=== PATIENT | female | born 1980 | race African-American/Black ===

== ENCOUNTER 2016-10-07 01:39 | Emergency (ER) | payer MEDICAID, MEDICARE ==
[~2016-10-07] VITALS: Ht 170.2 cm; Wt 68.0 kg
[~2016-10-07 01:39] MED LIST: DIPH25CA83 PO; HYDR-519 PO; METO25TA6 PO; ONDA4TAB5 PO; PROT20 PO
[2016-10-07] MEDS ORDERED: SODIUM CHLORIDE 0.9% 1,000 ML IV ONE (03:01)
[2016-10-07] MEDS ORDERED: MORPHINE SULFATE 4 MG/ML CPJ (NOT FOR IM USE) IV STA (03:01)
[2016-10-07] MEDS ORDERED: ONDANSETRON HCL 4MG/2ML VIAL IV STA (03:01)
[2016-10-07] MEDS ORDERED: DIPHENHYDRAMINE 50MG/ML VIAL IV ONE (03:15)
[2016-10-07 03:32] LABS: BASOPHILS % 0.5 % (0.0-2.0); EOSINOPHILS % 0.2 % (0.0-5.0); HCG SCREEN NEGATIVE; HEMATOCRIT. 39.6 % (36.0-48.0); HEMOGLOBIN. 13.1 g/dL (12.0-16.0); LYMPHOCYTES % 19.2 % (20.0-50.0); MEAN CORPUSCULAR HEMOGLOBIN 32.4 pg (28.0-32.0); MEAN CORPUSCULAR HGB CONC 33.1 g/dL (31.0-37.0); MEAN CORPUSCULAR VOLUME 97.9 fL (81.0-99.0); MEAN PLATELET VOLUME 8.2 fl (7.4-10.4); MONOCYTES % 4.4 % (2.0-8.0); NEUTROPHILS % 75.7 % (40.0-76.0); PLATELET 304 x1000/uL (130-400); RED BLOOD CELL COUNT 4.05 mill/uL (4.2-5.4); RED CELL DISTRIBUTION WIDTH 12.9 % (11.6-14.6); WHITE BLOOD COUNT 6.1 x1000/uL (4.5-11.0)
[2016-10-07 03:34] LABS: ALANINE AMINOTRANSFERASE 16 IU/L (13-61); ALBUMIN 4.1 g/dL (3.4-5.0); ANION GAP 12; CALCIUM 9.5 mg/dL (8.5-10.1); CARBON DIOXIDE 25 mEq/L (21-32); CHLORIDE 111 mEq/L (98-107); INDEX HEMOLYSI 3 (1-3); INDEX ICTERIC 1 (1-4); INDEX LIPEMIC 1 (1-3); LIPASE 333 IU/L (73-393); UREA NITROGEN BLOOD 12 mg/dL (7-21); eGFR > 60 mL/min (>60)
[2016-10-07 04:46] LABS: CLARITY URINE CLEAR (CLEAR); COLOR URINE YELLOW (YELLOW); GLUCOSE URINE NEGATIVE (NEGATIVE); KETONES URINE TRACE (NEGATIVE); LEUKOCYTE ESTERASE URINE NEGATIVE (NEGATIVE); NITRITE URINE NEGATIVE (NEGATIVE); OCCULT BLOOD URINE 2+ (NEGATIVE); PROTEIN URINE NEGATIVE (NEGATIVE); SPECIFIC GRAVITY URINE 1.032 (1.005-1.030)
[2016-10-07] MEDS ORDERED: MORPHINE SULFATE 4 MG/ML CPJ (NOT FOR IM USE) IV ONE (05:00)
[2016-10-07 05:52] LABS: SQUAMOUS EPITHELIAL CELL URINE 1+ /lpf (RARE/1+)
[2016-10-07 05:54] VITALS: BP 95/69
[2016-10-07 05:59] LABS: BACTERIA URINE TRACE; TRICHOMONAS URINE 1+
== END 2016-10-07 07:12 | disposition home or self-care (01) ==
LOC: ER 01:40
DX: N83.201 Unspecified ovarian cyst, right side (principal); N83.202 Unspecified ovarian cyst, left side; N80.9 Endometriosis, unspecified; Z87.19 Personal history of other diseases of the digestive system
CPT/HCPCS: 36415; 76830; 76856; 80053; 81001; 83690; 84703; 85025; 96361; 96374; 96375; 96376; 99285; J1200; J2270; J2405; J7030; Z7610

== ENCOUNTER 2016-11-16 07:28 | Emergency (ER) | payer MEDICAID, MEDICARE ==
[~2016-11-16] VITALS: Ht 170.2 cm; Wt 63.5 kg
[2016-11-16 07:47] VITALS: BP_DIAS 80
[2016-11-16] MEDS ORDERED: KETOROLAC 30MG/ML VIAL IV STA (07:47)
[2016-11-16] MEDS ORDERED: SODIUM CHLORIDE 0.9% 1,000 ML IV ONE (07:47)
[2016-11-16] MEDS ORDERED: ONDANSETRON HCL 4MG/2ML VIAL IV STA (07:47)
[2016-11-16] MEDS ORDERED: MORPHINE SULFATE 4 MG/ML CPJ (NOT FOR IM USE) IV STA (07:47)
[2016-11-16 08:46] VITALS: BP_SYST 60
[2016-11-16] MEDS ORDERED: METOCLOPRAMIDE HCL 10MG/2ML VIAL IV ONE (09:15)
[2016-11-16 09:50] LABS: DIFFERENTIAL COMMENT 1; HEMATOCRIT. 40.1 % (36.0-48.0); HEMOGLOBIN. 13.5 g/dL (12.0-16.0); MEAN CORPUSCULAR HEMOGLOBIN 32.3 pg (28.0-32.0); MEAN CORPUSCULAR HGB CONC 33.6 g/dL (31.0-37.0); MEAN CORPUSCULAR VOLUME 96.1 fL (81.0-99.0); PLATELET 302 x1000/uL (130-400); RED BLOOD CELL COUNT 4.17 mill/uL (4.2-5.4); RED CELL DISTRIBUTION WIDTH 13.2 % (11.6-14.6); WHITE BLOOD COUNT 15.6 x1000/uL (4.5-11.0)
[2016-11-16 09:58] LABS: INR 1.1
[2016-11-16 10:03] LABS: ALANINE AMINOTRANSFERASE 17 IU/L (13-61); ALBUMIN 4.5 g/dL (3.4-5.0); ANION GAP 15; CALCIUM 9.8 mg/dL (8.5-10.1); CARBON DIOXIDE 24 mEq/L (21-32); CHLORIDE 110 mEq/L (98-107); INDEX HEMOLYSI 1 (1-3); INDEX ICTERIC 1 (1-4); INDEX LIPEMIC 1 (1-3); LIPASE 107 IU/L (73-393); NT PRO B-TYPE NATRIURETIC PEP 46 pg/mL (5-125); TROPONIN I < 0.02 ng/mL (0.00-0.04); UREA NITROGEN BLOOD 15 mg/dL (7-21); eGFR > 60 mL/min (>60)
[2016-11-16 10:08] LABS: PLATELET ESTIMATE NORMAL
== END 2016-11-16 10:58 | disposition home or self-care (01) ==
LOC: ER 07:53
DX: R10.84 Generalized abdominal pain (principal); N83.209 Unspecified ovarian cyst, unspecified side; I10 Essential (primary) hypertension; J45.909 Unspecified asthma, uncomplicated; K21.9 Gastro-esophageal reflux disease without esophagitis; F17.200 Nicotine dependence, unspecified, uncomplicated
CPT/HCPCS: 36415; 80053; 83690; 83880; 84484; 85025; 85610; 96361; 96374; 96375; 99285; J1885; J2270; J2405; J2765; Z7610; J7030

== ENCOUNTER 2017-10-15 13:12 | Emergency (ER) | payer MEDICARE ==
[~2017-10-15] VITALS: Ht 172.7 cm; Wt 59.0 kg
[2017-10-15] MEDS ORDERED: ONDANSETRON HCL 4MG/2ML VIAL IV STA (14:28)
[2017-10-15] MEDS ORDERED: MORPHINE SULFATE 4 MG/ML CPJ (NOT FOR IM USE) IV STA (14:28)
[2017-10-15] MEDS ORDERED: SODIUM CHLORIDE 0.9% 1,000 ML IV ONE (14:28)
[2017-10-15 14:33] LABS: CLARITY URINE CLOUDY (CLEAR); COLOR URINE DARK YELLOW (YELLOW); KETONES URINE 3+ (NEGATIVE); LEUKOCYTE ESTERASE URINE 2+ (NEGATIVE); NITRITE URINE NEGATIVE (NEGATIVE); OCCULT BLOOD URINE 2+ (NEGATIVE); PH URINE 6.5 (4.5-8.0); PROTEIN URINE 2+ (NEGATIVE); SPECIFIC GRAVITY URINE 1.033 (1.005-1.030)
[2017-10-15 15:06] LABS: BASOPHILS % 0.5 % (0.0-2.0); EOSINOPHILS % 0.3 % (0.0-5.0); HEMATOCRIT. 43.1 % (36.0-48.0); HEMOGLOBIN. 14.6 g/dL (12.0-16.0); LYMPHOCYTES % 29.8 % (20.0-50.0); MEAN CORPUSCULAR HEMOGLOBIN 32.2 pg (28.0-32.0); MONOCYTES % 6.6 % (2.0-8.0); NEUTROPHILS % 62.8 % (40.0-76.0); PLATELET 307 x1000/uL (130-400); RED BLOOD CELL COUNT 4.54 mill/uL (4.2-5.4); RED CELL DISTRIBUTION WIDTH 12.9 % (11.6-14.6)
[2017-10-15 15:09] LABS: CHLORIDE 109 mEq/L (98-107)
[2017-10-15] MEDS ORDERED: KETOROLAC 15MG/ML VIAL IV ONE (16:00)
[2017-10-15] MEDS ORDERED: ONDANSETRON HCL 4MG/2ML VIAL IV ONE ×2 (16:00→19:15)
[2017-10-15] MEDS ORDERED: CEFTRIAXONE 1 G PREMIX 50 ML IV ONE (17:00)
[2017-10-15] MEDS ORDERED: MORPHINE SULFATE 4 MG/ML CPJ (NOT FOR IM USE) IV ONE ×2 (17:00→19:45)
[2017-10-15] MEDS ORDERED: IOHEXOL-300 100 ML BOTTLE ONE (19:35)
[2017-10-15 21:00] VITALS: BP 112/81
[2017-10-18 04:14] LABS: CHLAMYDIA TRACHOMATIS NAA Negative (Negative); NEISSERIA GONORRHOEAE NAA Negative (Negative)
== END 2017-10-15 21:35 | disposition home or self-care (01) ==
LOC: ER 13:51
DX: N39.0 Urinary tract infection, site not specified (principal); R10.31 Right lower quadrant pain; K57.30 Diverticulosis of large intestine without perforation or abscess without bleeding; N83.209 Unspecified ovarian cyst, unspecified side; I10 Essential (primary) hypertension; J45.909 Unspecified asthma, uncomplicated
CPT/HCPCS: 36415; 74177; 76830; 76856; 80053; 81003; 81025; 83690; 85025; 87210; 87491; 87591; 96361; 96365; 96375; 96376; 99285; J0696; J1885; J2270; J2405; J7030; Q9967

== ENCOUNTER 2017-11-03 03:34 | Emergency (ER) | payer MEDICARE ==
[~2017-11-03] VITALS: Ht 162.6 cm; Wt 59.0 kg
[2017-11-03] MEDS ORDERED: SODIUM CHLORIDE 0.9% 1,000 ML IV ONE (03:49)
[2017-11-03] MEDS ORDERED: FAMOTIDINE 20MG/2ML VIAL IV STA (03:49)
[2017-11-03] MEDS ORDERED: ONDANSETRON HCL 4MG/2ML VIAL IV STA (03:49)
[2017-11-03] MEDS ORDERED: MORPHINE SULFATE 4 MG/ML CPJ (NOT FOR IM USE) IV STA (03:49)
[2017-11-03 04:25] LABS: BASOPHILS % 0.6 % (0.0-2.0); EOSINOPHILS % 0.9 % (0.0-5.0); HEMOGLOBIN. 13.6 g/dL (12.0-16.0); LYMPHOCYTES % 32.4 % (20.0-50.0); MEAN CORPUSCULAR HEMOGLOBIN 33.3 pg (28.0-32.0); MEAN CORPUSCULAR VOLUME 95.8 fL (81.0-99.0); MEAN PLATELET VOLUME 8.1 fl (7.4-10.4); MONOCYTES % 7.9 % (2.0-8.0); NEUTROPHILS % 58.2 % (40.0-76.0); PLATELET 298 x1000/uL (130-400); RED BLOOD CELL COUNT 4.08 mill/uL (4.2-5.4)
[2017-11-03 04:27] LABS: CHLORIDE 112 mEq/L (98-107)
[2017-11-03 04:28] LABS: INR 1.1; PROTHROMBIN TIME 11.1 sec (9.4-11.6)
[2017-11-03 04:29] LABS: HCG SCREEN NEGATIVE
[2017-11-03 04:32] LABS: ETHANOL BLOOD < 10 mg/dL
[2017-11-03] MEDS ORDERED: MORPHINE SULFATE 2 MG/ML CPJ (NOT FOR IM USE) IV STA (05:22)
[2017-11-03] MEDS ORDERED: MORPHINE SULFATE 4 MG/ML CPJ (NOT FOR IM USE) IV SCH (05:26)
[2017-11-03] MEDS ORDERED: KETOROLAC 30MG/ML VIAL IV ONE (06:30)
[2017-11-03] MEDS ORDERED: MORPHINE SULFATE 4 MG/ML CPJ (NOT FOR IM USE) IV ONE ×2 (07:00→12:15)
[2017-11-03 09:29] LABS: CLARITY URINE CLEAR (CLEAR); COLOR URINE YELLOW (YELLOW); KETONES URINE TRACE (NEGATIVE); LEUKOCYTE ESTERASE URINE NEGATIVE (NEGATIVE); NITRITE URINE NEGATIVE (NEGATIVE); OCCULT BLOOD URINE 1+ (NEGATIVE); PROTEIN URINE NEGATIVE (NEGATIVE); SPECIFIC GRAVITY URINE 1.031 (1.005-1.030); UROBILINOGEN URINE 0.2 E.U./dL (0.2-1.0)
[2017-11-03] MEDS ORDERED: ONDANSETRON HCL 4MG/2ML VIAL IV ONE ×2 (09:45→12:15)
[2017-11-03] MEDS ORDERED: MORPHINE SULFATE 10 MG/ML CPJ IM ONE (09:45)
[2017-11-03 10:36] LABS: *AMPHETAMINES SCREEN URINE NEGATIVE (NEGATIVE); *BARBITURATES SCREEN URINE NEGATIVE (NEGATIVE); *BENZODIAZEPINES SCREEN URINE NEGATIVE (NEGATIVE); *COCAINE SCREEN URINE NEGATIVE (NEGATIVE)
[2017-11-03 10:37] LABS: METHADONE URINE SCREEN NEGATIVE (NEGATIVE); PHENCYCLIDINE URINE SCREEN NEGATIVE (NEGATIVE)
[2017-11-03 10:57] LABS: CANNABINOID URINE SCREEN PRESUMTIVE POSITIVE (NEGATIVE); OPIATES URINE SCREEN PRESUMTIVE POSITIVE (NEGATIVE)
[2017-11-03] MEDS ORDERED: DIPHENHYDRAMINE 50MG/ML VIAL IM ONE (12:15)
[2017-11-03 13:21] VITALS: BP 110/78
== END 2017-11-03 13:26 | disposition home or self-care (01) ==
LOC: ER 03:34
DX: R10.31 Right lower quadrant pain (principal); I10 Essential (primary) hypertension; J45.909 Unspecified asthma, uncomplicated
CPT/HCPCS: 36415; 71045; 74176; 76830; 76856; 80053; 80305; 81003; 83605; 83690; 84703; 85025; 85610; 96361; 96374; 96375; 96376; 99285; G0482; J1200; J1885; J2270; J2405; J3490; J7030; Z7610

== ENCOUNTER 2017-11-17 05:37 | Emergency (ER) | payer MEDICARE ==
[~2017-11-17] VITALS: Ht 172.7 cm; Wt 63.0 kg
[2017-11-17] MEDS ORDERED: SODIUM CHLORIDE 0.9% 1,000 ML IV ONE (05:58)
[2017-11-17] MEDS ORDERED: ONDANSETRON HCL 4MG/2ML VIAL IV STA (05:58)
[2017-11-17] MEDS ORDERED: KETOROLAC 30MG/ML VIAL IV ONE (06:00)
[2017-11-17] MEDS ORDERED: MIDAZOLAM HCL 2 MG/2 ML VIAL IV ONE (06:00)
[2017-11-17 06:18] LABS: BASOPHILS % 0.2 % (0.0-2.0); EOSINOPHILS % 0.3 % (0.0-5.0); HEMATOCRIT. 40.9 % (36.0-48.0); LYMPHOCYTES % 14.6 % (20.0-50.0); MEAN CORPUSCULAR HEMOGLOBIN 32.8 pg (28.0-32.0); MEAN CORPUSCULAR VOLUME 95.6 fL (81.0-99.0); MONOCYTES % 4.6 % (2.0-8.0); NEUTROPHILS % 80.3 % (40.0-76.0); PLATELET 343 x1000/uL (130-400); RED BLOOD CELL COUNT 4.28 mill/uL (4.2-5.4); RED CELL DISTRIBUTION WIDTH 12.9 % (11.6-14.6)
[2017-11-17 06:24] LABS: HCG SCREEN NEGATIVE; INR 1.1; PARTIAL THROMBOPLASTIN TIME 23.3 sec (23.4-31.0); PROTHROMBIN TIME 11.4 sec (9.4-11.6)
[2017-11-17 06:33] LABS: CHLORIDE 109 mEq/L (98-107)
[2017-11-17 06:46] VITALS: BP 108/76
[2017-11-17 09:15] LABS: CLARITY URINE TURBID (CLEAR); COLOR URINE DARK YELLOW (YELLOW); KETONES URINE TRACE (NEGATIVE); LEUKOCYTE ESTERASE URINE NEGATIVE (NEGATIVE); NITRITE URINE NEGATIVE (NEGATIVE); OCCULT BLOOD URINE 2+ (NEGATIVE); PROTEIN URINE 2+ (NEGATIVE); SPECIFIC GRAVITY URINE 1.034 (1.005-1.030)
[2017-11-17 09:49] LABS: *AMPHETAMINES SCREEN URINE NEGATIVE (NEGATIVE); *BARBITURATES SCREEN URINE NEGATIVE (NEGATIVE); *COCAINE SCREEN URINE NEGATIVE (NEGATIVE); METHADONE URINE SCREEN NEGATIVE (NEGATIVE)
[2017-11-17 09:51] LABS: PHENCYCLIDINE URINE SCREEN NEGATIVE (NEGATIVE)
[2017-11-17 09:59] LABS: *BENZODIAZEPINES SCREEN URINE PRESUMTIVE POSITIVE (NEGATIVE); CANNABINOID URINE SCREEN PRESUMTIVE POSITIVE (NEGATIVE); OPIATES URINE SCREEN PRESUMTIVE POSITIVE (NEGATIVE)
== END 2017-11-17 10:33 | disposition home or self-care (01) ==
LOC: ER 05:37
DX: R10.2 Pelvic and perineal pain (principal); R11.10 Vomiting, unspecified; F12.10 Cannabis abuse, uncomplicated; I10 Essential (primary) hypertension; G89.29 Other chronic pain
CPT/HCPCS: 36415; 76830; 76856; 80053; 80305; 81003; 83690; 84703; 85025; 85610; 85730; 87086; 96361; 96374; 96375; 99285; J1885; J2250; J2405; J7030

== ENCOUNTER 2018-01-06 23:34 | Emergency (ER) | payer MEDICARE ==
[~2018-01-06] VITALS: Ht 175.3 cm; Wt 60.0 kg
[2018-01-06] MEDS ORDERED: ONDANSETRON HCL 4MG/2ML VIAL IV STA (23:52)
[2018-01-06] MEDS ORDERED: MORPHINE SULFATE 4 MG/ML CPJ (NOT FOR IM USE) IV STA (23:52)
[2018-01-06] MEDS ORDERED: SODIUM CHLORIDE 0.9% 1,000 ML IV ONE (23:52)
[2018-01-07 00:27] LABS: CHLORIDE 104 mEq/L (98-107)
[2018-01-07 00:28] LABS: INR 1.1; PROTHROMBIN TIME 11.5 sec (9.4-11.6)
[2018-01-07 00:32] LABS: BASOPHILS % 0.3 % (0.0-2.0); EOSINOPHILS % 0.3 % (0.0-5.0); HEMATOCRIT. 48.1 % (36.0-48.0); HEMOGLOBIN. 16.3 g/dL (12.0-16.0); LYMPHOCYTES % 25.3 % (20.0-50.0); MEAN CORPUSCULAR HEMOGLOBIN 32.5 pg (28.0-32.0); MEAN CORPUSCULAR VOLUME 95.9 fL (81.0-99.0); MEAN PLATELET VOLUME 8.1 fl (7.4-10.4); MONOCYTES % 5.1 % (2.0-8.0); PLATELET 428 x1000/uL (130-400); RED BLOOD CELL COUNT 5.02 mill/uL (4.2-5.4)
[2018-01-07] MEDS ORDERED: PIPERACILLIN/TAZOBACTAM 3.375GM/50ML PREMIX IV ONE (00:45)
[2018-01-07] MEDS ORDERED: PIPERACILLIN/TAZ 3.375G PREMIX 50 ML IV NR (01:00)
[2018-01-07] MEDS ORDERED: HALOPERIDOL LACTATE 5MG/ML VIAL IM ONE ×2 (01:30→05:00)
[2018-01-07 02:56] LABS: CLARITY URINE CLOUDY (CLEAR); COLOR URINE DARK YELLOW (YELLOW); KETONES URINE TRACE (NEGATIVE); LEUKOCYTE ESTERASE URINE NEGATIVE (NEGATIVE); NITRITE URINE NEGATIVE (NEGATIVE); OCCULT BLOOD URINE 2+ (NEGATIVE); PROTEIN URINE 3+ (NEGATIVE); SPECIFIC GRAVITY URINE 1.033 (1.005-1.030)
[2018-01-07] MEDS ORDERED: KETOROLAC 30MG/ML VIAL IV ONE (05:00)
[2018-01-07 05:25] VITALS: BP 122/77
== END 2018-01-07 05:29 | disposition home or self-care (01) ==
LOC: ER 23:34
DX: K57.90 Diverticulosis of intestine, part unspecified, without perforation or abscess without bleeding (principal); F12.188 Cannabis abuse with other cannabis-induced disorder; F41.9 Anxiety disorder, unspecified; Z79.899 Other long term (current) drug therapy
CPT/HCPCS: 36415; 71045; 74176; 76830; 76856; 80053; 81003; 81025; 83605; 83690; 85025; 85610; 96361; 96365; 96366; 96372; 96375; 99285; C1893; J1630; J1885; J2270; J2405; J2543; J7030; Z7610

== ENCOUNTER 2018-03-27 09:41 | Emergency (ER) | payer MEDICARE ==
[~2018-03-27] VITALS: Ht 172.7 cm; Wt 65.0 kg
[2018-03-27] MEDS ORDERED: MORPHINE SULFATE 4 MG/ML CPJ (NOT FOR IM USE) IV STA (10:36)
[2018-03-27] MEDS ORDERED: ONDANSETRON HCL 4MG/2ML INJ IV STA (10:36)
[2018-03-27] MEDS ORDERED: SODIUM CHLORIDE 0.9% 1,000 ML IV ONE (10:36)
[2018-03-27 11:08] LABS: HEMOGLOBIN. 12.7 g/dL (12.0-16.0); MEAN CORPUSCULAR HEMOGLOBIN 33.2 pg (28.0-32.0); MEAN CORPUSCULAR VOLUME 96.7 fL (81.0-99.0); MEAN PLATELET VOLUME 8.2 fl (7.4-10.4); PLATELET 336 x1000/uL (130-400); RED BLOOD CELL COUNT 3.82 mill/uL (4.2-5.4); RED CELL DISTRIBUTION WIDTH 13.2 % (11.6-14.6)
[2018-03-27 11:13] LABS: CHLORIDE 112 mEq/L (98-107)
[2018-03-27] MEDS ORDERED: KETOROLAC 15MG/ML VIAL IV ONE (11:30)
[2018-03-27 11:36] LABS: PLATELET ESTIMATE NORMAL
[2018-03-27] MEDS ORDERED: HYDROMORPHONE HCL/PF 2MG/ML CPJ IV ONE (12:15)
[2018-03-27 13:12] LABS: CLARITY URINE CLOUDY (CLEAR); COLOR URINE YELLOW (YELLOW); KETONES URINE 2+ (NEGATIVE); LEUKOCYTE ESTERASE URINE NEGATIVE (NEGATIVE); NITRITE URINE POSITIVE (NEGATIVE); OCCULT BLOOD URINE 2+ (NEGATIVE); PH URINE 7.5 (4.5-8.0); PROTEIN URINE 1+ (NEGATIVE); UROBILINOGEN URINE 0.2 E.U./dL (0.2-1.0)
[2018-03-27] MEDS ORDERED: CEFTRIAXONE 1 G PREMIX 50 ML IV ONE (13:30)
[2018-03-27] MEDS ORDERED: HYDROCODONE/ACETAMINOPHEN 5/325MG TABLET PO ONE (15:30)
[2018-03-27] MEDS ORDERED: IBUPROFEN 600MG TABLET PO ONE (15:30)
[2018-03-27 16:36] VITALS: BP 128/72
== END 2018-03-27 16:41 | disposition home or self-care (01) ==
LOC: ER 09:41
DX: N12 Tubulo-interstitial nephritis, not specified as acute or chronic (principal); R11.2 Nausea with vomiting, unspecified; F41.9 Anxiety disorder, unspecified; Z79.899 Other long term (current) drug therapy
CPT/HCPCS: 36415; 76830; 76856; 80053; 81003; 81025; 83690; 85025; 87040; 96361; 96365; 96375; 99285; J0696; J1170; J1885; J2270; J2405; J7030; Z7610; 87086

== ENCOUNTER 2018-03-27 18:33 | Emergency (ER) | payer MEDICARE ==
[~2018-03-27] VITALS: Ht 162.6 cm; Wt 63.0 kg
[2018-03-27] MEDS: SODIUM CHLORIDE 0.9% 1,000 ML IV ONE (23:08)
[2018-03-27] MEDS: METOCLOPRAMIDE HCL 10MG/2ML VIAL IV ONE (23:09)
[2018-03-27] MEDS: MORPHINE SULFATE 4 MG/ML CPJ (NOT FOR IM USE) IV ONE (23:12)
[2018-03-27 23:42] LABS: HEMATOCRIT. 35.2 % (36.0-48.0); MEAN CORPUSCULAR VOLUME 96.8 fL (81.0-99.0); MEAN PLATELET VOLUME 8.9 fl (7.4-10.4); PLATELET 282 x1000/uL (130-400); RED BLOOD CELL COUNT 3.63 mill/uL (4.2-5.4); RED CELL DISTRIBUTION WIDTH 13.4 % (11.6-14.6)
[2018-03-27 23:45] LABS: CHLORIDE 106 mEq/L (98-107)
[2018-03-27 23:49] LABS: HCG SCREEN NEGATIVE
[2018-03-28] MEDS: MIDAZOLAM HCL 2 MG/2 ML VIAL IV ONE (00:10)
[2018-03-28 01:31] LABS: ATYPICAL LYMPHOCYTES 1
[2018-03-28 01:32] LABS: PLATELET ESTIMATE NORMAL
[2018-03-28] MEDS: ACETAMINOPHEN WITH CODEINE 300/30MG TABLET PO ONE (04:20)
[2018-03-28 04:26] VITALS: BP 128/89
== END 2018-03-28 04:31 | disposition home or self-care (01) ==
LOC: ER 18:33
DX: R10.84 Generalized abdominal pain (principal); R11.2 Nausea with vomiting, unspecified; F41.9 Anxiety disorder, unspecified; F12.10 Cannabis abuse, uncomplicated; Z79.899 Other long term (current) drug therapy
CPT/HCPCS: 36415; 80053; 83690; 84703; 85025; 96361; 96374; 96375; 99285; J2250; J2270; J2765; J7030

== ENCOUNTER 2018-04-11 04:04 | Emergency (ER) | payer MEDICARE ==
[~2018-04-11] VITALS: Ht 162.6 cm; Wt 54.0 kg
[2018-04-11] MEDS ORDERED: ONDANSETRON HCL 4MG/2ML INJ IV NR (04:25)
[2018-04-11] MEDS ORDERED: KETOROLAC 30MG/ML VIAL IV NR (04:25)
[2018-04-11 05:04] LABS: BASOPHILS % 0.4 % (0.0-2.0); HEMATOCRIT. 39.7 % (36.0-48.0); HEMOGLOBIN. 13.3 g/dL (12.0-16.0); LYMPHOCYTES % 10.6 % (20.0-50.0); MEAN CORPUSCULAR HEMOGLOBIN 33.1 pg (28.0-32.0); MEAN CORPUSCULAR VOLUME 98.8 fL (81.0-99.0); MEAN PLATELET VOLUME 8.8 fl (7.4-10.4); MONOCYTES % 3.6 % (2.0-8.0); NEUTROPHILS % 85.4 % (40.0-76.0); PLATELET 375 x1000/uL (130-400); RED BLOOD CELL COUNT 4.02 mill/uL (4.2-5.4)
[2018-04-11] MEDS ORDERED: HALOPERIDOL LACTATE 5MG/ML VIAL IM ONE (05:30)
[2018-04-11] MEDS ORDERED: SODIUM CHLORIDE 0.9% 1000ML BAG (SEPSIS BOLUS) IV ONE (05:45)
[2018-04-11 08:09] LABS: INR 1.1; PROTHROMBIN TIME 10.8 sec (9.1-11.1)
[2018-04-11 08:34] LABS: CHLORIDE 110 mEq/L (98-107)
[2018-04-11 08:38] LABS: ETHANOL BLOOD < 10 mg/dL
[2018-04-11 09:59] VITALS: BP 125/68
== END 2018-04-11 10:04 | disposition home or self-care (01) ==
LOC: ER 04:04 → CANBEDREQ 16:56
DX: R10.31 Right lower quadrant pain (principal); R10.11 Right upper quadrant pain; R30.0 Dysuria; F41.9 Anxiety disorder, unspecified; Z79.899 Other long term (current) drug therapy
CPT/HCPCS: 36415; 71045; 80053; 83605; 83690; 85025; 85610; 96372; 96374; 96375; 99285; G0482; J1630; J1885; J2405; J7030; Z7610

== ENCOUNTER 2018-04-11 10:05 | Emergency (ER) | payer MEDICARE ==
[~2018-04-11] VITALS: Ht 165.1 cm; Wt 60.0 kg
[2018-04-11] MEDS ORDERED: ACETAMINOPHEN 325MG TABLET PO ONE (11:00)
[2018-04-11] MEDS ORDERED: LORAZEPAM 1MG TABLET PO ONE (11:00)
[2018-04-11 11:25] LABS: MEAN CORPUSCULAR HEMOGLOBIN 32.8 pg (28.0-32.0); MEAN CORPUSCULAR VOLUME 98.9 fL (81.0-99.0); MEAN PLATELET VOLUME 8.1 fl (7.4-10.4); PLATELET 302 x1000/uL (130-400); RED BLOOD CELL COUNT 3.64 mill/uL (4.2-5.4); RED CELL DISTRIBUTION WIDTH 13.8 % (11.6-14.6)
[2018-04-11 11:31] LABS: CHLORIDE 110 mEq/L (98-107)
[2018-04-11 11:35] LABS: ETHANOL BLOOD < 10 mg/dL
[2018-04-11] MEDS ORDERED: KETOROLAC 30MG/ML VIAL IM ONE (11:45)
[2018-04-11 12:05] LABS: PLATELET ESTIMATE NORMAL
[2018-04-11] MEDS ORDERED: ONDANSETRON 4MG ODT PO ONE (12:15)
[2018-04-11 12:33] LABS: CLARITY URINE CLEAR (CLEAR); COLOR URINE YELLOW (YELLOW); KETONES URINE 1+ (NEGATIVE); LEUKOCYTE ESTERASE URINE NEGATIVE (NEGATIVE); NITRITE URINE NEGATIVE (NEGATIVE); OCCULT BLOOD URINE 2+ (NEGATIVE); PROTEIN URINE NEGATIVE (NEGATIVE); SPECIFIC GRAVITY URINE 1.017 (1.005-1.030); UROBILINOGEN URINE 0.2 E.U./dL (0.2-1.0)
[2018-04-11 14:45] LABS: *AMPHETAMINES SCREEN URINE NEGATIVE (NEGATIVE); *BARBITURATES SCREEN URINE NEGATIVE (NEGATIVE); *BENZODIAZEPINES SCREEN URINE NEGATIVE (NEGATIVE); *COCAINE SCREEN URINE NEGATIVE (NEGATIVE); METHADONE URINE SCREEN NEGATIVE (NEGATIVE)
[2018-04-11 14:46] LABS: OPIATES URINE SCREEN NEGATIVE (NEGATIVE); PHENCYCLIDINE URINE SCREEN NEGATIVE (NEGATIVE)
[2018-04-11 14:51] LABS: CANNABINOID URINE SCREEN PRESUMTIVE POSITIVE (NEGATIVE)
[2018-04-11 16:19] VITALS: BP 130/78
== END 2018-04-11 16:20 | disposition home or self-care (01) ==
LOC: ER 12:03
DX: N39.0 Urinary tract infection, site not specified (principal); R55 Syncope and collapse; F41.9 Anxiety disorder, unspecified; Z79.899 Other long term (current) drug therapy
CPT/HCPCS: 36415; 70450; 74176; 80053; 80305; 81003; 81025; 83690; 85025; 96372; 99285; G0482; J1885; Q0162

== ENCOUNTER 2018-06-04 00:41 | Emergency (ER) | payer MEDICARE ==
[~2018-06-04] VITALS: Ht 167.6 cm; Wt 68.0 kg
[2018-06-04] MEDS ORDERED: MORPHINE SULFATE 4 MG/ML CPJ (NOT FOR IM USE) IV STA (06:28)
[2018-06-04] MEDS ORDERED: SODIUM CHLORIDE 0.9% 1,000 ML IV ONE (06:28)
[2018-06-04] MEDS ORDERED: ONDANSETRON HCL 4MG/2ML INJ IV STA (06:28)
[2018-06-04 08:48] LABS: HEMATOCRIT. 39.6 % (36.0-48.0); HEMOGLOBIN. 13.6 g/dL (12.0-16.0); MEAN CORPUSCULAR HEMOGLOBIN 33.6 pg (28.0-32.0); MEAN CORPUSCULAR VOLUME 97.8 fL (81.0-99.0); MEAN PLATELET VOLUME 8.7 fl (7.4-10.4); PLATELET 302 x1000/uL (130-400); RED BLOOD CELL COUNT 4.05 mill/uL (4.2-5.4); RED CELL DISTRIBUTION WIDTH 13.4 % (11.6-14.6)
[2018-06-04 08:56] LABS: CHLORIDE 113 mEq/L (98-107)
[2018-06-04 09:23] LABS: PLATELET ESTIMATE NORMAL
[2018-06-04] MEDS ORDERED: LORAZEPAM 2MG/ML CPJ IV ONE (09:45)
[2018-06-04 09:48] LABS: CLARITY URINE CLOUDY (CLEAR); COLOR URINE DARK YELLOW (YELLOW); KETONES URINE 2+ (NEGATIVE); LEUKOCYTE ESTERASE URINE TRACE (NEGATIVE); NITRITE URINE NEGATIVE (NEGATIVE); OCCULT BLOOD URINE 2+ (NEGATIVE); PROTEIN URINE 2+ (NEGATIVE); SPECIFIC GRAVITY URINE 1.037 (1.005-1.030)
[2018-06-04 10:14] LABS: *AMPHETAMINES SCREEN URINE NEGATIVE (NEGATIVE); *BARBITURATES SCREEN URINE NEGATIVE (NEGATIVE); *BENZODIAZEPINES SCREEN URINE NEGATIVE (NEGATIVE); *COCAINE SCREEN URINE NEGATIVE (NEGATIVE); METHADONE URINE SCREEN NEGATIVE (NEGATIVE); PHENCYCLIDINE URINE SCREEN NEGATIVE (NEGATIVE)
[2018-06-04 10:34] LABS: OPIATES URINE SCREEN PRESUMTIVE POSITIVE (NEGATIVE)
[2018-06-04 10:35] LABS: CANNABINOID URINE SCREEN PRESUMTIVE POSITIVE (NEGATIVE)
[2018-06-04 11:05] VITALS: BP 123/77
== END 2018-06-04 11:21 | disposition home or self-care (01) ==
LOC: ER 00:41
DX: R10.9 Unspecified abdominal pain (principal); R11.2 Nausea with vomiting, unspecified
CPT/HCPCS: 36415; 80053; 80305; 81003; 83690; 85025; 96361; 96374; 96375; 99283; J2060; J2270; J2405; J7030

== ENCOUNTER 2018-07-11 00:23 | Emergency (ER) | payer MEDICARE ==
[~2018-07-11] VITALS: Ht 165.1 cm; Wt 56.0 kg
[2018-07-11] MEDS ORDERED: KETOROLAC 30MG/ML VIAL IV STA (02:02)
[2018-07-11] MEDS ORDERED: ONDANSETRON HCL 4MG/2ML INJ IV STA (02:02)
[2018-07-11] MEDS ORDERED: SODIUM CHLORIDE 0.9% 1,000 ML IV ONE (02:02)
[2018-07-11 02:51] LABS: CHLORIDE 104 mEq/L (98-107)
[2018-07-11 02:53] LABS: BASOPHILS % 0.6 % (0.0-2.0); EOSINOPHILS % 0.1 % (0.0-5.0); HEMATOCRIT. 48.6 % (36.0-48.0); HEMOGLOBIN. 16.6 g/dL (12.0-16.0); LYMPHOCYTES % 19.3 % (20.0-50.0); MEAN CORPUSCULAR HEMOGLOBIN 33.3 pg (28.0-32.0); MEAN CORPUSCULAR VOLUME 97.2 fL (81.0-99.0); MEAN PLATELET VOLUME 8.9 fl (7.4-10.4); MONOCYTES % 6.9 % (2.0-8.0); NEUTROPHILS % 73.1 % (40.0-76.0); PLATELET 309 x1000/uL (130-400)
[2018-07-11] MEDS ORDERED: LORAZEPAM 1MG TABLET PO ONE (03:00)
[2018-07-11 03:52] LABS: CLARITY URINE CLOUDY (CLEAR); COLOR URINE DARK YELLOW (YELLOW); KETONES URINE 1+ (NEGATIVE); LEUKOCYTE ESTERASE URINE NEGATIVE (NEGATIVE); NITRITE URINE NEGATIVE (NEGATIVE); OCCULT BLOOD URINE 2+ (NEGATIVE); PH URINE 5.5 (4.5-8.0); PROTEIN URINE 2+ (NEGATIVE); SPECIFIC GRAVITY URINE 1.039 (1.005-1.030)
[2018-07-11 04:06] LABS: HCG SCREEN NEGATIVE
[2018-07-11] MEDS ORDERED: MORPHINE SULFATE 10 MG/ML CPJ IV ONE (05:00)
[2018-07-11] MEDS ORDERED: HALOPERIDOL LACTATE 5MG/ML VIAL IM ONE (06:00)
[2018-07-11 09:58] VITALS: BP 122/74
== END 2018-07-11 09:58 | disposition home or self-care (01) ==
LOC: ER 00:23
DX: R10.30 Lower abdominal pain, unspecified (principal); R11.0 Nausea; Z79.899 Other long term (current) drug therapy
CPT/HCPCS: 36415; 76830; 76856; 80053; 81003; 81025; 84703; 85025; 96372; 96374; 96375; 99284; J1630; J1885; J2270; J2405; J7030

== ENCOUNTER 2018-10-13 20:25 | Inpatient (IN) | payer MEDICAID, MEDICARE ==
[~2018-10-13] VITALS: Ht 162.6 cm; Wt 63.5 kg
[2018-10-13] MEDS ORDERED: ONDANSETRON HCL 4MG/2ML INJ IV STA (21:06)
[2018-10-13] MEDS ORDERED: SODIUM CHLORIDE 0.9% 1,000 ML IV ONE (21:06)
[2018-10-13] MEDS ORDERED: MORPHINE SULFATE 4 MG/ML CPJ (NOT FOR IM USE) IV STA (21:06)
[2018-10-13 21:39] LABS: BASOPHILS % 0.3 % (0.0-2.0); EOSINOPHILS % 0.1 % (0.0-5.0); HEMATOCRIT. 46.4 % (36.0-48.0); HEMOGLOBIN. 16.3 g/dL (12.0-16.0); LYMPHOCYTES % 15.7 % (20.0-50.0); MEAN CORPUSCULAR HEMOGLOBIN 33.8 pg (28.0-32.0); MEAN CORPUSCULAR VOLUME 96.4 fL (81.0-99.0); MEAN PLATELET VOLUME 8.5 fl (7.4-10.4); MONOCYTES % 5.6 % (2.0-8.0); NEUTROPHILS % 78.3 % (40.0-76.0); PLATELET 354 x1000/uL (130-400); RED BLOOD CELL COUNT 4.81 mill/uL (4.2-5.4); RED CELL DISTRIBUTION WIDTH 12.5 % (11.6-14.6)
[2018-10-13 21:41] LABS: CHLORIDE 101 mEq/L (98-107)
[2018-10-13 21:44] LABS: INR 1.1; PARTIAL THROMBOPLASTIN TIME 25.3 sec (23.4-31.0); PROTHROMBIN TIME 11.2 sec (9.6-11.0)
[2018-10-13 21:45] LABS: ETHANOL BLOOD < 10 mg/dL
[2018-10-13 21:48] LABS: HCG SCREEN NEGATIVE
[2018-10-13] MEDS ORDERED: KCL 10MEQ/50ML PREMIX 50 ML IV ONE (23:30)
[2018-10-13 23:39] LABS: CLARITY URINE CLOUDY (CLEAR); COLOR URINE DARK YELLOW (YELLOW); KETONES URINE 1+ (NEGATIVE); LEUKOCYTE ESTERASE URINE 1+ (NEGATIVE); NITRITE URINE NEGATIVE (NEGATIVE); OCCULT BLOOD URINE 3+ (NEGATIVE); PH URINE 5.5 (4.5-8.0); PROTEIN URINE 3+ (NEGATIVE); SPECIFIC GRAVITY URINE 1.034 (1.005-1.030)
[2018-10-14 00:02] LABS: *COCAINE SCREEN URINE NEGATIVE (NEGATIVE); METHADONE URINE SCREEN NEGATIVE (NEGATIVE)
[2018-10-14 00:03] LABS: *AMPHETAMINES SCREEN URINE NEGATIVE (NEGATIVE); *BARBITURATES SCREEN URINE NEGATIVE (NEGATIVE); *BENZODIAZEPINES SCREEN URINE NEGATIVE (NEGATIVE); PHENCYCLIDINE URINE SCREEN NEGATIVE (NEGATIVE)
[2018-10-14 00:14] LABS: CANNABINOID URINE SCREEN PRESUMTIVE POSITIVE (NEGATIVE); OPIATES URINE SCREEN PRESUMTIVE POSITIVE (NEGATIVE)
[2018-10-14] MEDS ORDERED: CEFTRIAXONE 1 G PREMIX 50 ML IV ONE (00:30)
[2018-10-14] MEDS ORDERED: ONDANSETRON HCL 4MG/2ML INJ IV ONE (00:30)
[2018-10-14] MEDS ORDERED: MORPHINE SULFATE 4 MG/ML CPJ (NOT FOR IM USE) IV ONE (02:00)
[2018-10-14 08:30] VITALS: BP 137/91
[2018-10-14] MEDS: MORPHINE SULFATE 4 MG/ML CPJ (NOT FOR IM USE) IV PRN ×3 (09:23→19:51)
[2018-10-14] MEDS ORDERED: ACETAMINOPHEN 325MG TABLET PO PRN (10:15)
[2018-10-14] MEDS ORDERED: CLONIDINE 0.1MG TABLET PO PRN (10:15)
[2018-10-14] MEDS ORDERED: NA PHOS,M-B/NA PHOS,DI-BA ENEMA 118ML PR PRN (10:15)
[2018-10-14] MEDS ORDERED: MAGNESIUM/ALUMINUM HYDROXIDE/SIMETHICONE 30ML UDC PO PRN (10:15)
[2018-10-14] MEDS ORDERED: HYDROCODONE/ACETAMINOPHEN 5/325MG TABLET PO PRN (10:15)
[2018-10-14] MEDS ORDERED: LORAZEPAM 0.5MG TABLET PO PRN (10:15)
[2018-10-14] MEDS ORDERED: GUAIFENESIN 200MG/10ML SUGAR FREE UDC PO PRN (10:15)
[2018-10-14] MEDS ORDERED: IPRATROPIUM/ALBUTEROL 0.5-3(2.5)MG/3ML NEB INH PRN (10:15)
[2018-10-14] MEDS ORDERED: DEXTROSE 50% WATER 50ML SYRINGE IV PRN (10:15)
[2018-10-14] MEDS ORDERED: DOCUSATE SODIUM 100MG CAPSULE PO PRN (10:15)
[2018-10-14] MEDS ORDERED: ACETAMINOPHEN 650MG SUPP PR PRN (10:15)
[2018-10-14] MEDS: ENOXAPARIN 30MG/0.3ML SYR SUBCUT SCH ×2 (11:00→11:45)
[2018-10-14] MEDS ORDERED: METRONIDAZOLE 500 MG PREMIX 2,000 MG in BAG 0 EACH IV ONE (11:00)
[2018-10-14] MEDS ORDERED: METOPROLOL TARTRATE 25MG TABLET PO SCH (11:15)
[2018-10-14] MEDS: ONDANSETRON HCL 4MG/2ML INJ IV PRN ×2 (11:57→20:00)
[2018-10-14 12:00] VITALS: BP 117/75
[2018-10-14] MEDS: BLOOD SUGAR DIAGNOSTIC STRIP TEST SCH ×3 (12:40→21:59)
[2018-10-14] MEDS: INSULIN LISPRO 100 UNITS/ML SUBCUT SCH ×3 (12:41→22:05)
[2018-10-14 12:50] LABS: HEMATOCRIT 39.7 % (36.0-48.0); HEMOGLOBIN 13.9 g/dL (12.0-16.0); MEAN CORPUSCULAR HEMOGLOBIN 33.3 pg (28.0-32.0); PLATELET 289 x1000/uL (130-400); RED BLOOD CELL COUNT 4.18 mill/uL (4.2-5.4); RED CELL DISTRIBUTION WIDTH 12.3 % (11.6-14.6)
[2018-10-14] MEDS ORDERED: LEVOFLOXACIN 500MG PREMIX 100 ML IV NR (13:00)
[2018-10-14 13:02] LABS: CHLORIDE 102 mEq/L (98-107)
[2018-10-14 13:08] LABS: PHOSPHORUS 3.9 mg/dL (2.5-4.9)
[2018-10-14] MEDS: SODIUM CHLORIDE 0.45% 1,000 ML IV SCH ×2 (13:23→22:00)
[2018-10-14] MEDS ORDERED: METRONIDAZOLE IV SCH (14:00)
[2018-10-14] MEDS ORDERED: LIDOCAINE HCL 1% 20ML VIAL (Pyxis) INJ ONE (14:15)
[2018-10-14 16:00] VITALS: BP 130/64
[2018-10-14] MEDS: PANTOPRAZOLE SODIUM 40 MG/VIAL IV SCH (16:15)
[2018-10-14] MEDS: METOCLOPRAMIDE HCL 10MG/2ML VIAL IV SCH ×2 (16:15→22:04)
[2018-10-14] MEDS: LORAZEPAM 2MG/ML CPJ IV PRN (16:16)
[2018-10-14 19:49] VITALS: BP 130/75
[2018-10-14] MEDS: DIPHENHYDRAMINE 50MG/ML VIAL IV PRN (19:51)
[2018-10-14] MEDS ORDERED: FAMOTIDINE 20MG TABLET PO SCH (21:00)
[2018-10-14] MEDS: METOPROLOL TARTRATE 25MG TABLET PO SCH (21:59)
[2018-10-15] VITALS: BP 99/69
[2018-10-15] MEDS: LORAZEPAM 2MG/ML CPJ IV PRN ×2 (00:47→09:42)
[2018-10-15] MEDS: MORPHINE SULFATE 4 MG/ML CPJ (NOT FOR IM USE) IV PRN ×4 (01:48→22:11)
[2018-10-15] MEDS: DIPHENHYDRAMINE 50MG/ML VIAL IV PRN ×5 (01:48→22:11)
[2018-10-15] MEDS: SODIUM CHLORIDE 0.45% 1,000 ML IV SCH ×3 (03:15→22:17)
[2018-10-15 04:00] VITALS: BP 110/80
[2018-10-15] MEDS: METOCLOPRAMIDE HCL 10MG/2ML VIAL IV SCH ×3 (05:40→22:17)
[2018-10-15 06:35] LABS: BASOPHILS % 0.1 % (0.0-2.0); EOSINOPHILS % 0.1 % (0.0-5.0); HEMATOCRIT. 36.2 % (36.0-48.0); HEMOGLOBIN. 12.4 g/dL (12.0-16.0); LYMPHOCYTES % 20.2 % (20.0-50.0); MEAN CORPUSCULAR HEMOGLOBIN 32.8 pg (28.0-32.0); MEAN CORPUSCULAR VOLUME 95.5 fL (81.0-99.0); MEAN PLATELET VOLUME 8.6 fl (7.4-10.4); MONOCYTES % 8.3 % (2.0-8.0); NEUTROPHILS % 71.3 % (40.0-76.0); PLATELET 227 x1000/uL (130-400); RED BLOOD CELL COUNT 3.79 mill/uL (4.2-5.4); RED CELL DISTRIBUTION WIDTH 12.4 % (11.6-14.6)
[2018-10-15 07:00] LABS: CHLORIDE 104 mEq/L (98-107)
[2018-10-15] MEDS: BLOOD SUGAR DIAGNOSTIC STRIP TEST SCH ×4 (07:03→21:00)
[2018-10-15] MEDS: INSULIN LISPRO 100 UNITS/ML SUBCUT SCH ×4 (07:08→21:00)
[2018-10-15 07:16] LABS: LDL CHOLESTEROL 88 mg/dL (5-100)
[2018-10-15 07:17] LABS: HDL CHOLESTEROL 33 mg/dL (40-59)
[2018-10-15 07:18] LABS: T4 FREE 1.32 ng/dL (0.76-1.46)
[2018-10-15] MEDS: PANTOPRAZOLE SODIUM 40 MG/VIAL IV SCH (07:45)
[2018-10-15] MEDS: METOPROLOL TARTRATE 25MG TABLET PO SCH ×2 (07:45→22:11)
[2018-10-15] MEDS: ENOXAPARIN 30MG/0.3ML SYR SUBCUT SCH (07:47)
[2018-10-15] MEDS ORDERED: LEVOFLOXACIN 250MG PREMIX 50 ML IV SCH (13:00)
[2018-10-15 16:00] VITALS: BP 138/72
[2018-10-15 20:00] VITALS: BP 109/67
[2018-10-15] MEDS ORDERED: METRONIDAZOLE 0.75% VAG GEL 70GM VG SCH (21:00)
[2018-10-16] VITALS: BP 99/66
[2018-10-16 04:00] VITALS: BP 114/81
[2018-10-16] MEDS: DIPHENHYDRAMINE 50MG/ML VIAL IV PRN ×3 (04:04→12:37)
[2018-10-16] MEDS: MORPHINE SULFATE 4 MG/ML CPJ (NOT FOR IM USE) IV PRN ×2 (04:12→10:33)
[2018-10-16] MEDS: LORAZEPAM 2MG/ML CPJ IV PRN (05:02)
[2018-10-16] MEDS: METOCLOPRAMIDE HCL 10MG/2ML VIAL IV SCH (05:03)
[2018-10-16] MEDS: BLOOD SUGAR DIAGNOSTIC STRIP TEST SCH ×2 (06:12→12:32)
[2018-10-16 06:59] LABS: CHLORIDE 108 mEq/L (98-107)
[2018-10-16 07:04] LABS: BASOPHILS % 0.2 % (0.0-2.0); EOSINOPHILS % 0.2 % (0.0-5.0); HEMATOCRIT. 36.9 % (36.0-48.0); HEMOGLOBIN. 12.6 g/dL (12.0-16.0); LYMPHOCYTES % 21.6 % (20.0-50.0); MONOCYTES % 9.4 % (2.0-8.0); NEUTROPHILS % 68.6 % (40.0-76.0); PLATELET 232 x1000/uL (130-400); RED CELL DISTRIBUTION WIDTH 12.1 % (11.6-14.6)
[2018-10-16 07:05] LABS: PHOSPHORUS 2.3 mg/dL (2.5-4.9)
[2018-10-16 08:00] VITALS: BP 104/67
[2018-10-16] MEDS: INSULIN LISPRO 100 UNITS/ML SUBCUT SCH ×2 (08:10→12:32)
[2018-10-16] MEDS: METOPROLOL TARTRATE 25MG TABLET PO SCH (08:30)
[2018-10-16] MEDS ORDERED: ENOXAPARIN 40MG/0.4ML SYR SUBCUT SCH (09:00)
[2018-10-16] MEDS: PANTOPRAZOLE SODIUM 40 MG/VIAL IV SCH (09:15)
[2018-10-16] MEDS ORDERED: POTASSIUM CHLORIDE 20MEQ TABLET SR PO SCH (09:30)
[2018-10-16] MEDS ORDERED: POTASSIUM PHOS,M-BASIC-D-BASIC 20 MMOL in DEXT 5% WATER 243.3333 ML IV SCH (11:30)
[2018-10-16 12:00] VITALS: BP 110/74
[2018-10-16] MEDS ORDERED: POTASSIUM-SODIUM PHOSPHATE POWDER PACKET PO SCH (12:00)
[2018-10-16] MEDS ORDERED: MORPHINE SULFATE 4 MG/ML CPJ (NOT FOR IM USE) IV SCH (12:00)
[2018-10-16 12:48] VITALS: BP 110/74
[2018-10-16] MEDS ORDERED: LEVOFLOXACIN 500MG PREMIX 100 ML IV SCH (14:00)
== END 2018-10-16 13:50 | disposition home or self-care (01) | DRG 469 ==
LOC: ER 10-14 → 7WST 10-14 01:50 → ENRESERV 10-14 07:19
PROVIDERS: ADMIT Family Medicine Adult Medicine; ATTEND Family Medicine Adult Medicine
PROC: 02HV33Z Insertion of Infusion Device into Superior Vena Cava, Percutaneous Approach (ICD-10-PCS; principal; 2018-10-14)
PROC: B548ZZA Ultrasonography of Superior Vena Cava, Guidance (ICD-10-PCS; 2018-10-14)
DX: N17.9 Acute kidney failure, unspecified (principal); E83.39 Other disorders of phosphorus metabolism; E83.52 Hypercalcemia; E87.1 Hypo-osmolality and hyponatremia; A59.9 Trichomoniasis, unspecified; N39.0 Urinary tract infection, site not specified; E86.0 Dehydration; E74.39 Other disorders of intestinal carbohydrate absorption; E87.6 Hypokalemia; F41.9 Anxiety disorder, unspecified; G89.29 Other chronic pain; I10 Essential (primary) hypertension; M47.817 Spondylosis without myelopathy or radiculopathy, lumbosacral region; R73.9 Hyperglycemia, unspecified; N76.0 Acute vaginitis; Z87.440 Personal history of urinary (tract) infections; Z91.14 Patient's other noncompliance with medication regimen
CPT/HCPCS: 36415; 36569; 36573; 71045; 74176; 76770; 80048; 80061; 80305; 80320; 82962; 83036; 83735; 83880; 84100; 84439; 84443; 84450; 84460; 84484; 84703; 85027; 87389; 93005; 93306; 96361; 96365; 96366; 96375; 96376; 99285; C1725; C9113; J0696; J1200; J1650; J1956; J2060; J2270; J2405; J2765; J3480; J3490; J7030; J7060; G0480

== ENCOUNTER 2018-11-12 02:16 | Inpatient (IN) | payer MEDICAID ==
[~2018-11-12] VITALS: Ht 134.6 cm; Wt 62.7 kg
[2018-11-12] VITALS (7 sets, daily range): BP systolic 96–130; BP diastolic 54–81
[2018-11-12] MEDS ORDERED: MORPHINE SULFATE 4 MG/ML CPJ (NOT FOR IM USE) IV STA (02:26)
[2018-11-12] MEDS ORDERED: ONDANSETRON HCL 4MG/2ML INJ IV STA (02:26)
[2018-11-12] MEDS ORDERED: CEFTRIAXONE 1 G PREMIX 50 ML IV ONE (02:30)
[2018-11-12] MEDS ORDERED: SODIUM CHLORIDE 0.9% 1000ML BAG (SEPSIS BOLUS) IV ONE (02:30)
[2018-11-12 03:17] LABS: BASOPHILS % 0.6 % (0.0-2.0); EOSINOPHILS % 0.6 % (0.0-5.0); HEMATOCRIT. 45.2 % (36.0-48.0); HEMOGLOBIN. 15.2 g/dL (12.0-16.0); LYMPHOCYTES % 39.2 % (20.0-50.0); MEAN CORPUSCULAR HEMOGLOBIN 32.8 pg (28.0-32.0); MEAN CORPUSCULAR VOLUME 97.6 fL (81.0-99.0); MEAN PLATELET VOLUME 8.6 fl (7.4-10.4); MONOCYTES % 5.1 % (2.0-8.0); NEUTROPHILS % 54.5 % (40.0-76.0); PLATELET 438 x1000/uL (130-400); RED BLOOD CELL COUNT 4.63 mill/uL (4.2-5.4)
[2018-11-12 03:24] LABS: CHLORIDE 110 mEq/L (98-107)
[2018-11-12 03:25] LABS: INR 1.1; PROTHROMBIN TIME 11.1 sec (9.6-11.0)
[2018-11-12 03:28] LABS: ETHANOL BLOOD < 10 mg/dL
[2018-11-12] MEDS ORDERED: KETOROLAC 30MG/ML VIAL IV NR (04:15)
[2018-11-12] MEDS ORDERED: MIDAZOLAM HCL 2 MG/2 ML VIAL IV NR (04:15)
[2018-11-12 04:36] LABS: CLARITY URINE CLOUDY (CLEAR); COLOR URINE YELLOW (YELLOW); KETONES URINE TRACE (NEGATIVE); LEUKOCYTE ESTERASE URINE 2+ (NEGATIVE); NITRITE URINE NEGATIVE (NEGATIVE); OCCULT BLOOD URINE 2+ (NEGATIVE); PROTEIN URINE 2+ (NEGATIVE); SPECIFIC GRAVITY URINE 1.024 (1.005-1.030)
[2018-11-12 05:26] LABS: *BENZODIAZEPINES SCREEN URINE NEGATIVE (NEGATIVE); *COCAINE SCREEN URINE NEGATIVE (NEGATIVE)
[2018-11-12 05:27] LABS: *AMPHETAMINES SCREEN URINE NEGATIVE (NEGATIVE); *BARBITURATES SCREEN URINE NEGATIVE (NEGATIVE); METHADONE URINE SCREEN NEGATIVE (NEGATIVE); PHENCYCLIDINE URINE SCREEN NEGATIVE (NEGATIVE)
[2018-11-12 05:37] LABS: CANNABINOID URINE SCREEN PRESUMTIVE POSITIVE (NEGATIVE); OPIATES URINE SCREEN PRESUMTIVE POSITIVE (NEGATIVE)
[2018-11-12] MEDS ORDERED: SODIUM CHLORIDE 0.9% 1,000 ML IV SCH ×2 (06:46→12:00)
[2018-11-12] MEDS ORDERED: IPRATROPIUM/ALBUTEROL 0.5-3(2.5)MG/3ML NEB INH PRN (07:00)
[2018-11-12] MEDS ORDERED: NITROGLYCERIN 0.4MG TABLET SL SL PRN (07:00)
[2018-11-12] MEDS ORDERED: DOCUSATE SODIUM 100MG CAPSULE PO PRN (07:00)
[2018-11-12] MEDS ORDERED: CLONIDINE 0.1MG TABLET PO PRN (07:00)
[2018-11-12] MEDS ORDERED: ZOLPIDEM TARTRATE 5MG TABLET PO PRN (07:00)
[2018-11-12] MEDS ORDERED: MAGNESIUM/ALUMINUM HYDROXIDE/SIMETHICONE 30ML UDC PO PRN (07:00)
[2018-11-12] MEDS ORDERED: ONDANSETRON HCL 4MG/2ML INJ IV PRN (07:00)
[2018-11-12] MEDS ORDERED: GUAIFENESIN 200MG/10ML SUGAR FREE UDC PO PRN (07:00)
[2018-11-12] MEDS ORDERED: LEVOFLOXACIN 500MG PREMIX 100 ML IV SCH (07:00)
[2018-11-12] MEDS ORDERED: ACETAMINOPHEN 325MG TABLET PO PRN (07:00)
[2018-11-12] MEDS: KETOROLAC 15MG/ML VIAL IV PRN ×2 (08:02→21:48)
[2018-11-12] MEDS: ENOXAPARIN 40MG/0.4ML SYR SUBCUT SCH ×2 (09:00→09:29)
[2018-11-12] MEDS: PANTOPRAZOLE SODIUM 40 MG/VIAL IV SCH (09:28)
[2018-11-12] MEDS: SUCRALFATE 1 G/10 ML UDC PO SCH ×4 (09:29→21:43)
[2018-11-12] MEDS: LORAZEPAM 0.5MG TABLET PO PRN ×4 (09:29→23:34)
[2018-11-12] MEDS ORDERED: CEFTRIAXONE 1 G PREMIX 50 ML IV SCH (21:00)
[2018-11-13] VITALS: BP 100/50
[2018-11-13] MEDS ORDERED: CEFTRIAXONE 1 G PREMIX 50 ML IV SCH (03:00)
[2018-11-13 04:00] VITALS: BP 108/59
[2018-11-13] MEDS: KETOROLAC 15MG/ML VIAL IV PRN ×2 (04:53→11:29)
[2018-11-13] MEDS: LORAZEPAM 0.5MG TABLET PO PRN ×2 (05:08→09:53)
[2018-11-13] MEDS: SUCRALFATE 1 G/10 ML UDC PO SCH ×2 (06:56→09:53)
[2018-11-13 08:00] VITALS: BP 131/81
[2018-11-13] MEDS ORDERED: LEVOFLOXACIN 500MG PREMIX 100 ML IV SCH (08:00)
[2018-11-13] MEDS: ENOXAPARIN 40MG/0.4ML SYR SUBCUT SCH (09:00)
[2018-11-13] MEDS: PANTOPRAZOLE SODIUM 40 MG/VIAL IV SCH (09:53)
[2018-11-13 11:56] VITALS: BP 128/65
[2018-11-13 13:40] VITALS: BP 128/65
== END 2018-11-13 14:00 | disposition home or self-care (01) | DRG 812 ==
LOC: ER 02:41 → 5EST 05:49 → EDBEDREQTM 05:59 → EDBEDREQ 05:59 → ENRESERV 07:21 → 6EST 20:50
PROVIDERS: ADMIT Internal Medicine; ATTEND Internal Medicine
DX: T40.7X1A Poisoning by cannabis (derivatives), accidental (unintentional), initial encounter (principal); E87.2 Acidosis; F41.9 Anxiety disorder, unspecified; N39.0 Urinary tract infection, site not specified; E86.0 Dehydration; F12.10 Cannabis abuse, uncomplicated; R00.0 Tachycardia, unspecified; F17.210 Nicotine dependence, cigarettes, uncomplicated; K57.90 Diverticulosis of intestine, part unspecified, without perforation or abscess without bleeding; Z71.51 Drug abuse counseling and surveillance of drug abuser; Z76.5 Malingerer [conscious simulation]; Y92.89 Other specified places as the place of occurrence of the external cause; Z79.1 Long term (current) use of non-steroidal anti-inflammatories (NSAID); Z82.49 Family history of ischemic heart disease and other diseases of the circulatory system; Z79.84 Long term (current) use of oral hypoglycemic drugs
CPT/HCPCS: 36415; 71045; 74176; 80305; 80320; 83036; 83605; 83880; 84145; 84484; 93005; 96365; 96375; 99291; C9113; J0696; J1650; J1885; J1956; J2250; J2270; J2405; J7030; G0480

== ENCOUNTER 2019-01-01 04:41 | Inpatient (IN) | payer MEDICAID ==
[~2019-01-01] VITALS: Ht 162.6 cm; Wt 63.5 kg
[2019-01-01] MEDS ORDERED: ONDANSETRON HCL 4MG/2ML INJ IV STA (06:12)
[2019-01-01] MEDS ORDERED: MORPHINE SULFATE 4 MG/ML CPJ (NOT FOR IM USE) IV STA (06:12)
[2019-01-01 06:26] LABS: BASOPHILS % 0.4 % (0.0-2.0); HEMATOCRIT. 36.1 % (36.0-48.0); HEMOGLOBIN. 12.2 g/dL (12.0-16.0); LYMPHOCYTES % 9.6 % (20.0-50.0); MEAN CORPUSCULAR HEMOGLOBIN 33.1 pg (28.0-32.0); MEAN CORPUSCULAR VOLUME 98.2 fL (81.0-99.0); MEAN PLATELET VOLUME 8.2 fl (7.4-10.4); MONOCYTES % 5.2 % (2.0-8.0); NEUTROPHILS % 84.8 % (40.0-76.0); PLATELET 282 x1000/uL (130-400); RED BLOOD CELL COUNT 3.67 mill/uL (4.2-5.4); RED CELL DISTRIBUTION WIDTH 13.4 % (11.6-14.6)
[2019-01-01] MEDS ORDERED: DICYCLOMINE 10 MG/5 ML ORAL SYR PO STA (06:27)
[2019-01-01] MEDS ORDERED: MAGNESIUM/ALUMINUM HYDROXIDE/SIMETHICONE 30ML UDC PO STA (06:27)
[2019-01-01] MEDS ORDERED: FAMOTIDINE 20MG/2ML VIAL IV STA (06:27)
[2019-01-01] MEDS ORDERED: VISCOUS LIDOCAINE 2% 15 ML UDC PO STA (06:27)
[2019-01-01 06:33] LABS: CLARITY URINE TURBID (CLEAR); COLOR URINE YELLOW (YELLOW); KETONES URINE 1+ (NEGATIVE); LEUKOCYTE ESTERASE URINE 1+ (NEGATIVE); NITRITE URINE POSITIVE (NEGATIVE); OCCULT BLOOD URINE 3+ (NEGATIVE); PROTEIN URINE 2+ (NEGATIVE); SPECIFIC GRAVITY URINE 1.029 (1.005-1.030)
[2019-01-01 06:35] LABS: INR 1.1; PROTHROMBIN TIME 11.1 sec (9.6-11.0)
[2019-01-01 06:37] LABS: CHLORIDE 109 mEq/L (98-107)
[2019-01-01 06:39] LABS: HCG SCREEN NEGATIVE
[2019-01-01] MEDS ORDERED: CEFTRIAXONE 1 G PREMIX 50 ML IV ONE (07:00)
[2019-01-01] MEDS ORDERED: KETOROLAC 30MG/ML VIAL IV ONE (07:45)
[2019-01-01] MEDS ORDERED: ONDANSETRON HCL 4MG/2ML INJ IV ONE (08:00)
[2019-01-01] MEDS ORDERED: MORPHINE SULFATE 4 MG/ML CPJ (NOT FOR IM USE) IV ONE (09:00)
[2019-01-01] MEDS ORDERED: HYDROMORPHONE HCL/PF 2MG/ML CPJ IV PRN (11:15)
[2019-01-01] MEDS ORDERED: MAGNESIUM/ALUMINUM HYDROXIDE/SIMETHICONE 30ML UDC PO PRN ×2 (11:15→17:30)
[2019-01-01] MEDS ORDERED: KETOROLAC 30MG/ML VIAL IV PRN (11:15)
[2019-01-01] MEDS ORDERED: HYDROCODONE/ACETAMINOPHEN 5/325MG TABLET PO PRN (11:15)
[2019-01-01] MEDS ORDERED: LORAZEPAM 0.5MG TABLET PO PRN (11:15)
[2019-01-01] MEDS ORDERED: ONDANSETRON HCL 4MG/2ML INJ IV PRN (11:15)
[2019-01-01] MEDS ORDERED: DIPHENHYDRAMINE 50MG/ML VIAL IV PRN (11:15)
[2019-01-01] MEDS ORDERED: ACETAMINOPHEN 325MG TABLET PO PRN (11:15)
[2019-01-01] MEDS ORDERED: LORAZEPAM 2MG/ML CPJ IV NR (11:30)
[2019-01-01 11:45] VITALS: BP 136/87
[2019-01-01] MEDS ORDERED: LEVOFLOXACIN 500MG PREMIX 100 ML IV SCH (12:30)
[2019-01-01] MEDS ORDERED: KETOROLAC 15MG/ML VIAL IV PRN (15:33)
[2019-01-01] MEDS: DEXT 5%/0.45% NACL KCL 20MEQ/L 1,000 ML IV SCH ×2 (15:38→20:09)
[2019-01-01 15:51] VITALS: BP 127/75
[2019-01-01 15:56] VITALS: BP 136/87
[2019-01-01] MEDS ORDERED: IBUPROFEN 600MG TABLET PO PRN (18:00)
[2019-01-01] MEDS: LORAZEPAM 1MG TABLET PO PRN (18:20)
[2019-01-01] MEDS: METOCLOPRAMIDE HCL 10MG/2ML VIAL IV SCH (19:03)
[2019-01-01] MEDS: FAMOTIDINE 20MG/2ML VIAL IV SCH ×2 (21:00→22:04)
[2019-01-02] VITALS: BP 133/79
[2019-01-02] MEDS: METOCLOPRAMIDE HCL 10MG/2ML VIAL IV SCH
[2019-01-02] MEDS: LORAZEPAM 1MG TABLET PO PRN (03:52)
[2019-01-02] MEDS ORDERED: METOCLOPRAMIDE HCL 10MG TABLET PO SCH (06:00)
[2019-01-02 06:36] LABS: BASOPHILS % 0.6 % (0.0-2.0); EOSINOPHILS % 0.6 % (0.0-5.0); HEMATOCRIT. 36.3 % (36.0-48.0); HEMOGLOBIN. 12.3 g/dL (12.0-16.0); MEAN CORPUSCULAR HEMOGLOBIN 33.4 pg (28.0-32.0); MEAN CORPUSCULAR VOLUME 98.3 fL (81.0-99.0); MEAN PLATELET VOLUME 8.6 fl (7.4-10.4); MONOCYTES % 10.1 % (2.0-8.0); NEUTROPHILS % 57.7 % (40.0-76.0); PLATELET 270 x1000/uL (130-400); RED BLOOD CELL COUNT 3.69 mill/uL (4.2-5.4); RED CELL DISTRIBUTION WIDTH 13.4 % (11.6-14.6)
[2019-01-02 06:45] LABS: CHLORIDE 107 mEq/L (98-107)
[2019-01-02] MEDS: FAMOTIDINE 20MG/2ML VIAL IV SCH (09:00)
[2019-01-02] MEDS ORDERED: POTASSIUM CHLORIDE 20MEQ TABLET SR PO NR (09:00)
[2019-01-02] MEDS ORDERED: DOCUSATE SODIUM 100MG CAPSULE PO SCH (09:00)
[2019-01-02] MEDS ORDERED: POTASSIUM CHLORIDE 20MEQ TABLET SR PO SCH ×2 (10:15→13:00)
[2019-01-02] MEDS ORDERED: LEVOFLOXACIN 500MG TABLET PO SCH (11:00)
== END 2019-01-02 11:02 | disposition left against medical advice (07) | DRG 463 ==
LOC: ER 04:41 → 6EST 08:46 → ENRESERV 10:04
PROVIDERS: ADMIT Internal Medicine; ATTEND Internal Medicine
DX: N39.0 Urinary tract infection, site not specified (principal); F32.9 Major depressive disorder, single episode, unspecified; N83.201 Unspecified ovarian cyst, right side; K57.30 Diverticulosis of large intestine without perforation or abscess without bleeding; K59.09 Other constipation; Z53.21 Procedure and treatment not carried out due to patient leaving prior to being seen by health care provider; F41.1 Generalized anxiety disorder; Z82.49 Family history of ischemic heart disease and other diseases of the circulatory system; Z76.5 Malingerer [conscious simulation]; Z87.440 Personal history of urinary (tract) infections; Z80.8 Family history of malignant neoplasm of other organs or systems; Z79.899 Other long term (current) drug therapy
CPT/HCPCS: 36415; 74176; 76830; 76856; 80048; 83735; 84703; 96374; 96375; 99285; J0696; J1170; J1885; J1956; J2060; J2270; J2405; J2765; J3490; J8597

== ENCOUNTER 2019-01-18 07:16 | Emergency (ER) | payer MEDICAID ==
[~2019-01-18] VITALS: Ht 165.1 cm; Wt 60.0 kg
[2019-01-18] MEDS ORDERED: KETOROLAC 30MG/ML VIAL IV STA (08:15)
[2019-01-18] MEDS ORDERED: SODIUM CHLORIDE 0.9% 1,000 ML IV ONE (08:15)
[2019-01-18] MEDS ORDERED: FAMOTIDINE 20MG/2ML VIAL IV STA (08:15)
[2019-01-18] MEDS: LORAZEPAM 2MG/ML CPJ IV ONE ×2 (08:15→08:46)
[2019-01-18] MEDS ORDERED: ONDANSETRON HCL 4MG/2ML INJ IV STA (08:15)
[2019-01-18] MEDS ORDERED: MORPHINE SULFATE 4 MG/ML CPJ (NOT FOR IM USE) IV STA (08:15)
[2019-01-18 08:33] LABS: CHLORIDE 110 mEq/L (98-107)
[2019-01-18 08:34] LABS: BASOPHILS % 0.4 % (0.0-2.0); EOSINOPHILS % 0.4 % (0.0-5.0); HEMATOCRIT. 39.7 % (36.0-48.0); HEMOGLOBIN. 13.4 g/dL (12.0-16.0); LYMPHOCYTES % 14.2 % (20.0-50.0); MEAN CORPUSCULAR HEMOGLOBIN 33.5 pg (28.0-32.0); MEAN CORPUSCULAR VOLUME 99.2 fL (81.0-99.0); MEAN PLATELET VOLUME 8.9 fl (7.4-10.4); MONOCYTES % 6.6 % (2.0-8.0); NEUTROPHILS % 78.4 % (40.0-76.0); PLATELET 314 x1000/uL (130-400); RED CELL DISTRIBUTION WIDTH 13.1 % (11.6-14.6)
[2019-01-18 08:38] LABS: ETHANOL BLOOD < 10 mg/dL
[2019-01-18 08:47] LABS: PROTHROMBIN TIME 10.7 sec (9.6-11.0)
[2019-01-18 08:58] LABS: HCG SCREEN NEGATIVE
[2019-01-18] MEDS ORDERED: LORAZEPAM 2MG/ML CPJ IV ONE ×2 (09:30→14:00)
[2019-01-18] MEDS ORDERED: METOCLOPRAMIDE HCL 10MG/2ML VIAL IV ONE (09:30)
[2019-01-18] MEDS ORDERED: MORPHINE SULFATE 4 MG/ML CPJ (NOT FOR IM USE) IV ONE (14:00)
[2019-01-18] MEDS ORDERED: ONDANSETRON HCL 4MG/2ML INJ IV ONE (14:00)
[2019-01-18 14:45] VITALS: BP 120/80
== END 2019-01-18 15:00 | disposition home or self-care (01) ==
LOC: ER 07:16
DX: N83.209 Unspecified ovarian cyst, unspecified side (principal); E86.0 Dehydration; F41.9 Anxiety disorder, unspecified; Z79.899 Other long term (current) drug therapy
CPT/HCPCS: 36415; 80053; 80320; 83690; 83880; 84484; 84703; 85025; 85610; 96374; 96375; 96376; 99283; J1885; J2060; J2270; J2405; J2765; J3490; J7030; G0480

== ENCOUNTER 2019-01-19 12:26 | Inpatient (IN) | payer MEDICAID ==
[~2019-01-19] VITALS: Ht 165.1 cm; Wt 58.6 kg
[2019-01-19] MEDS ORDERED: MORPHINE SULFATE 4 MG/ML CPJ (NOT FOR IM USE) IV STA (12:56)
[2019-01-19] MEDS ORDERED: ONDANSETRON HCL 4MG/2ML INJ IV STA (12:56)
[2019-01-19] MEDS ORDERED: SODIUM CHLORIDE 0.9% 1,000 ML IV ONE (12:56)
[2019-01-19 13:31] LABS: HEMATOCRIT. 36.3 % (36.0-48.0); HEMOGLOBIN. 12.5 g/dL (12.0-16.0); MEAN CORPUSCULAR HEMOGLOBIN 33.7 pg (28.0-32.0); MEAN CORPUSCULAR VOLUME 97.9 fL (81.0-99.0); MEAN PLATELET VOLUME 8.5 fl (7.4-10.4); PLATELET 240 x1000/uL (130-400); RED BLOOD CELL COUNT 3.71 mill/uL (4.2-5.4); RED CELL DISTRIBUTION WIDTH 12.6 % (11.6-14.6)
[2019-01-19 13:36] LABS: CHLORIDE 111 mEq/L (98-107)
[2019-01-19 13:37] LABS: HCG SCREEN NEGATIVE
[2019-01-19 13:47] LABS: CLARITY URINE TURBID (CLEAR); COLOR URINE AMBER (YELLOW); KETONES URINE 2+ (NEGATIVE); LEUKOCYTE ESTERASE URINE 1+ (NEGATIVE); NITRITE URINE NEGATIVE (NEGATIVE); OCCULT BLOOD URINE 3+ (NEGATIVE); PH URINE 5.5 (4.5-8.0); PROTEIN URINE 2+ (NEGATIVE); SPECIFIC GRAVITY URINE 1.036 (1.005-1.030)
[2019-01-19] MEDS ORDERED: CEFOXITIN SODIUM 2 G in DEXT 5% WATER 100 ML IV STA (13:52)
[2019-01-19] MEDS ORDERED: DOXYCYCLINE 100 MG in DEXT 5% WATER 100 ML IV STA (13:52)
[2019-01-19 13:53] LABS: PLATELET ESTIMATE NORMAL
[2019-01-19 14:23] LABS: *BARBITURATES SCREEN URINE NEGATIVE (NEGATIVE); *BENZODIAZEPINES SCREEN URINE NEGATIVE (NEGATIVE); *COCAINE SCREEN URINE NEGATIVE (NEGATIVE); METHADONE URINE SCREEN NEGATIVE (NEGATIVE); PHENCYCLIDINE URINE SCREEN NEGATIVE (NEGATIVE)
[2019-01-19 14:26] LABS: *AMPHETAMINES SCREEN URINE PRESUMTIVE POSITIVE (NEGATIVE); CANNABINOID URINE SCREEN PRESUMTIVE POSITIVE (NEGATIVE); OPIATES URINE SCREEN PRESUMTIVE POSITIVE (NEGATIVE)
[2019-01-19] MEDS ORDERED: METRONIDAZOLE 500MG TABLET PO ONE (14:45)
[2019-01-19] MEDS ORDERED: MORPHINE SULFATE 4 MG/ML CPJ (NOT FOR IM USE) IV ONE ×2 (15:45→17:45)
[2019-01-19] MEDS ORDERED: LEVOFLOXACIN 750MG PREMIX 150 ML IV ONE (17:00)
[2019-01-19] MEDS ORDERED: ACETAMINOPHEN 325MG TABLET PO PRN (21:00)
[2019-01-19] MEDS ORDERED: GUAIFENESIN 200MG/10ML SUGAR FREE UDC PO PRN (21:00)
[2019-01-19] MEDS ORDERED: DOCUSATE SODIUM 100MG CAPSULE PO PRN (21:00)
[2019-01-19] MEDS ORDERED: NA PHOS,M-B/NA PHOS,DI-BA ENEMA 118ML PR PRN (21:00)
[2019-01-19] MEDS ORDERED: MAGNESIUM/ALUMINUM HYDROXIDE/SIMETHICONE 30ML UDC PO PRN (21:00)
[2019-01-19] MEDS ORDERED: CLONIDINE 0.1MG TABLET PO PRN (21:00)
[2019-01-19] MEDS ORDERED: IPRATROPIUM/ALBUTEROL 0.5-3(2.5)MG/3ML NEB INH PRN (21:00)
[2019-01-19] MEDS ORDERED: HYDRALAZINE 20MG/ML VIAL IV PRN (21:00)
[2019-01-19] MEDS ORDERED: ONDANSETRON HCL 4MG/2ML INJ IV PRN (21:00)
[2019-01-19] MEDS ORDERED: LORAZEPAM 2MG/ML CPJ IV PRN (21:00)
[2019-01-19] MEDS ORDERED: MORPHINE SULFATE 2 MG/ML CPJ (NOT FOR IM USE) IV PRN (21:07)
[2019-01-19] MEDS ORDERED: HYDROCODONE/ACETAMINOPHEN 10/325MG TABLET PO PRN (21:08)
[2019-01-19 21:13] VITALS: BP 117/71
[2019-01-19] MEDS ORDERED: HYDRALAZINE 10 MG in SODIUM CHLORIDE 0.9% 49.5 ML IV PRN (21:30)
[2019-01-19 22:00] VITALS: BP 128/75
[2019-01-19] MEDS: HYDROMORPHONE HCL/PF 2MG/ML CPJ IV PRN (23:39)
[2019-01-20] VITALS: BP 144/95
[2019-01-20] MEDS: CEFOXITIN SODIUM 2 G in DEXT 5% WATER 100 ML IV SCH ×3 (01:21→11:29)
[2019-01-20] MEDS: SODIUM CHLORIDE 0.45% 1,000 ML IV SCH ×2 (01:44→18:29)
[2019-01-20] MEDS ORDERED: DOXYCYCLINE 100 MG in DEXT 5% WATER 100 ML IV SCH (02:00)
[2019-01-20 04:00] VITALS: BP 109/62
[2019-01-20] MEDS: HYDROMORPHONE HCL/PF 2MG/ML CPJ IV PRN ×6 (05:05→21:37)
[2019-01-20 07:01] LABS: BASOPHILS % 0.2 % (0.0-2.0); EOSINOPHILS % 1.4 % (0.0-5.0); HEMATOCRIT. 35.3 % (36.0-48.0); HEMOGLOBIN. 12.1 g/dL (12.0-16.0); MEAN CORPUSCULAR HEMOGLOBIN 33.9 pg (28.0-32.0); MEAN CORPUSCULAR VOLUME 98.7 fL (81.0-99.0); MEAN PLATELET VOLUME 8.6 fl (7.4-10.4); MONOCYTES % 6.8 % (2.0-8.0); NEUTROPHILS % 73.6 % (40.0-76.0); PLATELET 235 x1000/uL (130-400); RED BLOOD CELL COUNT 3.57 mill/uL (4.2-5.4); RED CELL DISTRIBUTION WIDTH 12.8 % (11.6-14.6)
[2019-01-20 07:03] LABS: CHLORIDE 106 mEq/L (98-107)
[2019-01-20] MEDS: DIPHENHYDRAMINE 50MG/ML VIAL IV PRN ×3 (07:56→18:32)
[2019-01-20 08:00] VITALS: BP 152/76
[2019-01-20] MEDS: ENOXAPARIN 40MG/0.4ML SYR SUBCUT SCH (08:06)
[2019-01-20] MEDS: ONDANSETRON HCL 4MG/2ML INJ IV PRN ×2 (11:28→18:32)
[2019-01-20 12:00] VITALS: BP 124/73
[2019-01-20 16:00] VITALS: BP 134/88
[2019-01-20] MEDS: METRONIDAZOLE 500 MG PREMIX 100 ML IV SCH ×2 (16:47→23:25)
[2019-01-20] MEDS: LEVOFLOXACIN 500MG PREMIX 100 ML IV SCH (18:28)
[2019-01-20 20:00] VITALS: BP 123/82
[2019-01-20] MEDS: METRONIDAZOLE 0.75% VAG GEL 70GM VG SCH (21:37)
[2019-01-20] MEDS: SODIUM CHLORIDE 0.9% INJ 3ML FLUSH IVF SCH (21:38)
[2019-01-21] VITALS: BP 122/71
[2019-01-21] MEDS: DIPHENHYDRAMINE 50MG/ML VIAL IV PRN ×5 (00:37→22:38)
[2019-01-21] MEDS: HYDROMORPHONE HCL/PF 2MG/ML CPJ IV PRN ×8 (00:41→22:39)
[2019-01-21] MEDS: SODIUM CHLORIDE 0.45% 1,000 ML IV SCH ×3 (02:10→23:54)
[2019-01-21 04:00] VITALS: BP 131/86
[2019-01-21 04:15] LABS: CHLAMYDIA TRACHOMATIS NAA Negative (Negative); NEISSERIA GONORRHOEAE NAA Negative (Negative)
[2019-01-21] MEDS: METRONIDAZOLE 500 MG PREMIX 100 ML IV SCH ×3 (06:44→23:54)
[2019-01-21 08:00] VITALS: BP 119/85
[2019-01-21] MEDS: ENOXAPARIN 40MG/0.4ML SYR SUBCUT SCH (09:00)
[2019-01-21] MEDS: FAMOTIDINE 20MG/2ML VIAL IV SCH (09:47)
[2019-01-21 11:54] VITALS: BP 145/93
[2019-01-21 15:45] VITALS: BP 132/76
[2019-01-21] MEDS: LEVOFLOXACIN 500MG PREMIX 100 ML IV SCH (16:08)
[2019-01-21] MEDS ORDERED: POTASSIUM CHLORIDE 20MEQ TABLET SR PO NR (17:15)
[2019-01-21 20:00] VITALS: BP 138/90
[2019-01-21] MEDS: SODIUM CHLORIDE 0.9% INJ 3ML FLUSH IVF SCH (21:23)
[2019-01-21] MEDS: METRONIDAZOLE 0.75% VAG GEL 70GM VG SCH (21:24)
[2019-01-22] VITALS: BP 122/81
[2019-01-22] MEDS: HYDROMORPHONE HCL/PF 2MG/ML CPJ IV PRN ×4 (01:43→11:08)
[2019-01-22 04:00] VITALS: BP 139/90
[2019-01-22] MEDS: DIPHENHYDRAMINE 50MG/ML VIAL IV PRN ×2 (04:44→08:54)
[2019-01-22] MEDS: SODIUM CHLORIDE 0.9% INJ 3ML FLUSH IVF SCH (05:58)
[2019-01-22 06:05] VITALS: BP 139/90
[2019-01-22] MEDS: METRONIDAZOLE 500 MG PREMIX 100 ML IV SCH (06:21)
[2019-01-22 08:00] VITALS: BP 131/91
[2019-01-22] MEDS: FAMOTIDINE 20MG/2ML VIAL IV SCH (08:54)
[2019-01-22] MEDS: ENOXAPARIN 40MG/0.4ML SYR SUBCUT SCH (09:00)
[2019-01-22] MEDS: ONDANSETRON HCL 4MG/2ML INJ IV PRN (09:11)
[2019-01-22 11:59] VITALS: BP 147/87
[2019-01-22 12:13] VITALS: BP 147/87
== END 2019-01-22 12:35 | disposition home or self-care (01) | DRG 720 ==
LOC: ER 12:26 → EDBEDREQSVC 18:30 → EDBEDREQ 18:30 → ENRESERV 19:49 → 6EST 20:53
PROVIDERS: ADMIT Internal Medicine; ATTEND Emergency Medicine
PROC: 02HV33Z Insertion of Infusion Device into Superior Vena Cava, Percutaneous Approach (ICD-10-PCS; principal; 2019-01-20)
PROC: B5181ZA Fluoroscopy of Superior Vena Cava using Low Osmolar Contrast, Guidance (ICD-10-PCS; 2019-01-20)
PROC: B548ZZA Ultrasonography of Superior Vena Cava, Guidance (ICD-10-PCS; 2019-01-20)
DX: A41.51 Sepsis due to Escherichia coli [E. coli] (principal); N73.0 Acute parametritis and pelvic cellulitis; K57.32 Diverticulitis of large intestine without perforation or abscess without bleeding; N76.0 Acute vaginitis; N73.9 Female pelvic inflammatory disease, unspecified; N39.0 Urinary tract infection, site not specified; N83.202 Unspecified ovarian cyst, left side; G47.00 Insomnia, unspecified; Z79.899 Other long term (current) drug therapy
CPT/HCPCS: 36415; 36573; 71045; 74176; 76830; 76856; 80305; 84703; 87077; 87186; 87210; 87491; 87591; 93005; 96365; 96375; 99285; C1725; C1769; C1893; J0694; J1170; J1200; J1650; J1956; J2270; J2405; J3490; J7030; J7040; J7060

== ENCOUNTER 2019-12-07 14:04 | Emergency (ER) | payer MEDICAID ==
[~2019-12-07] VITALS: Ht 170.2 cm; Wt 59.0 kg
[2019-12-07] MEDS ORDERED: MORPHINE SULFATE 4 MG/ML CPJ (NOT FOR IM USE) IV STA (14:20)
[2019-12-07] MEDS ORDERED: FAMOTIDINE 20MG/2ML VIAL IV STA (14:20)
[2019-12-07] MEDS ORDERED: SODIUM CHLORIDE 0.9% 1,000 ML IV ONE (14:20)
[2019-12-07] MEDS ORDERED: ONDANSETRON HCL 4MG/2ML INJ IV STA (14:20)
[2019-12-07 15:14] LABS: INR 1.1; PROTHROMBIN TIME 11.4 sec (9.6-11.0)
[2019-12-07 15:14] LABS: BASOPHILS % 0.4 % (0.0-2.0); EOSINOPHILS % 0.2 % (0.0-5.0); HEMATOCRIT. 48.6 % (36.0-48.0); HEMOGLOBIN. 16.9 g/dL (12.0-16.0); MEAN CORPUSCULAR VOLUME 97.6 fL (81.0-99.0); MEAN PLATELET VOLUME 8.6 fl (7.4-10.4); MONOCYTES % 5.7 % (2.0-8.0); NEUTROPHILS % 76.7 % (40.0-76.0); PLATELET 358 x1000/uL (130-400); RED BLOOD CELL COUNT 4.97 mill/uL (4.2-5.4); RED CELL DISTRIBUTION WIDTH 12.5 % (11.6-14.6)
[2019-12-07 15:19] LABS: CHLORIDE 105 mEq/L (98-107)
[2019-12-07 15:23] LABS: ETHANOL BLOOD < 10 mg/dL
[2019-12-07 15:28] LABS: HCG SCREEN NEGATIVE
[2019-12-07] MEDS ORDERED: KETOROLAC 30MG/ML VIAL IV ONE (17:30)
[2019-12-07 17:51] LABS: CLARITY URINE CLOUDY (CLEAR); COLOR URINE DARK YELLOW (YELLOW); KETONES URINE 1+ (NEGATIVE); LEUKOCYTE ESTERASE URINE TRACE (NEGATIVE); NITRITE URINE NEGATIVE (NEGATIVE); OCCULT BLOOD URINE 2+ (NEGATIVE); PH URINE 5.5 (4.5-8.0); PROTEIN URINE 2+ (NEGATIVE); SPECIFIC GRAVITY URINE 1.037 (1.005-1.030)
[2019-12-07 18:47] LABS: *AMPHETAMINES SCREEN URINE NEGATIVE (NEGATIVE)
[2019-12-07 18:48] LABS: *BARBITURATES SCREEN URINE NEGATIVE (NEGATIVE); *BENZODIAZEPINES SCREEN URINE NEGATIVE (NEGATIVE); *COCAINE SCREEN URINE NEGATIVE (NEGATIVE); METHADONE URINE SCREEN NEGATIVE (NEGATIVE); PHENCYCLIDINE URINE SCREEN NEGATIVE (NEGATIVE)
[2019-12-07 19:03] LABS: CANNABINOID URINE SCREEN PRESUMTIVE POSITIVE (NEGATIVE); OPIATES URINE SCREEN PRESUMTIVE POSITIVE (NEGATIVE)
[2019-12-07] MEDS ORDERED: NITROFURANTOIN 100MG M/M CAPSULE PO ONE (19:45)
[2019-12-07 19:50] VITALS: BP 123/70
== END 2019-12-07 19:51 | disposition home or self-care (01) ==
LOC: ER 14:13
DX: N39.0 Urinary tract infection, site not specified (principal); F41.9 Anxiety disorder, unspecified; Z87.19 Personal history of other diseases of the digestive system
CPT/HCPCS: 36415; 76830; 76856; 80053; 80305; 80320; 81003; 81025; 83690; 84703; 85025; 85610; 96361; 96374; 96375; 99285; J1885; J2270; J2405; J3490; J7030; G0480

== ENCOUNTER 2020-02-01 11:38 | Emergency (ER) | payer MEDICAID ==
[~2020-02-01] VITALS: Ht 165.1 cm; Wt 64.0 kg
[2020-02-01] MEDS ORDERED: SODIUM CHLORIDE 0.9% 1,000 ML IV ONE (12:15)
[2020-02-01] MEDS ORDERED: ONDANSETRON HCL 4MG/2ML INJ IV STA ×2 (12:15→14:59)
[2020-02-01] MEDS ORDERED: KETOROLAC 30MG/ML VIAL IV STA (12:15)
[2020-02-01 12:48] LABS: BASOPHILS % 0.6 % (0.0-2.0); EOSINOPHILS % 0.1 % (0.0-5.0); HEMOGLOBIN. 14.6 g/dL (12.0-16.0); LYMPHOCYTES % 23.3 % (20.0-50.0); MEAN CORPUSCULAR HEMOGLOBIN 33.3 pg (28.0-32.0); MEAN CORPUSCULAR VOLUME 98.4 fL (81.0-99.0); MEAN PLATELET VOLUME 8.3 fl (7.4-10.4); MONOCYTES % 3.6 % (2.0-8.0); NEUTROPHILS % 72.4 % (40.0-76.0); PLATELET 315 x1000/uL (130-400); RED BLOOD CELL COUNT 4.37 mill/uL (4.2-5.4); RED CELL DISTRIBUTION WIDTH 12.9 % (11.6-14.6)
[2020-02-01 12:53] LABS: CHLORIDE 111 mEq/L (98-107)
[2020-02-01 12:57] LABS: ETHANOL BLOOD < 10 mg/dL
[2020-02-01] MEDS ORDERED: LORAZEPAM 2MG/ML CPJ IV ONE ×2 (13:00→17:30)
[2020-02-01 13:01] LABS: CLARITY URINE TURBID (CLEAR); COLOR URINE DK YELLOW (YELLOW); KETONES URINE TRACE (NEGATIVE); LEUKOCYTE ESTERASE URINE NEGATIVE (NEGATIVE); NITRITE URINE NEGATIVE (NEGATIVE); OCCULT BLOOD URINE 3+ (NEGATIVE); PH URINE 5.5 (4.5-8.0); PROTEIN URINE 1+ (NEGATIVE); UROBILINOGEN URINE 0.2 E.U./dL (0.2-1.0)
[2020-02-01 13:21] LABS: HCG SCREEN NEGATIVE
[2020-02-01 13:42] LABS: *AMPHETAMINES SCREEN URINE NEGATIVE (NEGATIVE); *BARBITURATES SCREEN URINE NEGATIVE (NEGATIVE); PHENCYCLIDINE URINE SCREEN NEGATIVE (NEGATIVE)
[2020-02-01 13:45] LABS: METHADONE URINE SCREEN NEGATIVE (NEGATIVE); OPIATES URINE SCREEN NEGATIVE (NEGATIVE)
[2020-02-01 13:52] LABS: *BENZODIAZEPINES SCREEN URINE NEGATIVE (NEGATIVE)
[2020-02-01 13:53] LABS: *COCAINE SCREEN URINE NEGATIVE (NEGATIVE)
[2020-02-01 13:59] LABS: CANNABINOID URINE SCREEN PRESUMTIVE POSITIVE (NEGATIVE)
[2020-02-01] MEDS ORDERED: MORPHINE SULFATE 4 MG/ML CPJ (NOT FOR IM USE) IV STA (14:59)
[2020-02-01] MEDS ORDERED: ONDANSETRON HCL 4MG/2ML INJ ONE (15:20)
[2020-02-01] MEDS ORDERED: CEFTRIAXONE IV ONE (16:00)
[2020-02-01] MEDS ORDERED: WATER IV ONE (16:00)
[2020-02-01] MEDS ORDERED: DEXTROSE 5% IV ONE (16:00)
[2020-02-01] MEDS ORDERED: CEFTRIAXONE SODIUM 250 MG/VIAL ONE (16:09)
[2020-02-01] MEDS ORDERED: ACETAMINOPHEN WITH CODEINE 300/30MG TABLET PO ONE (17:00)
[2020-02-01 18:30] VITALS: BP 110/78
== END 2020-02-01 18:48 | disposition home or self-care (01) ==
LOC: ER 11:38
DX: R10.30 Lower abdominal pain, unspecified (principal); F41.9 Anxiety disorder, unspecified; F12.10 Cannabis abuse, uncomplicated; Z87.19 Personal history of other diseases of the digestive system
CPT/HCPCS: 36415; 74176; 80053; 80305; 80320; 81003; 83690; 84703; 85025; 93005; 96365; 96375; 96376; 99285; J0696; J1885; J2060; J2270; J2405; J7030; J7060; G0480

== ENCOUNTER 2020-04-02 06:08 | Emergency (ER) | payer MEDICAID ==
[~2020-04-02] VITALS: Ht 167.6 cm; Wt 55.0 kg
[2020-04-02] MEDS ORDERED: FAMOTIDINE 20MG/2ML VIAL IV STA (06:22)
[2020-04-02] MEDS ORDERED: SODIUM CHLORIDE 0.9% 1,000 ML IV ONE (06:22)
[2020-04-02] MEDS ORDERED: LORAZEPAM 2MG/ML CPJ IV ONE (06:30)
[2020-04-02] MEDS ORDERED: KETOROLAC 30MG/ML VIAL IV ONE (06:30)
[2020-04-02] MEDS ORDERED: MORPHINE SULFATE 4 MG/ML CPJ (NOT FOR IM USE) IV ONE (07:30)
[2020-04-02 07:55] LABS: CLARITY URINE TURBID (CLEAR); COLOR URINE DARK YELLOW (YELLOW); KETONES URINE TRACE (NEGATIVE); LEUKOCYTE ESTERASE URINE TRACE (NEGATIVE); NITRITE URINE NEGATIVE (NEGATIVE); OCCULT BLOOD URINE 3+ (NEGATIVE); PROTEIN URINE 2+ (NEGATIVE); SPECIFIC GRAVITY URINE 1.037 (1.005-1.030)
[2020-04-02 08:22] LABS: *AMPHETAMINES SCREEN URINE NEGATIVE (NEGATIVE); *BARBITURATES SCREEN URINE NEGATIVE (NEGATIVE); *COCAINE SCREEN URINE NEGATIVE (NEGATIVE); METHADONE URINE SCREEN NEGATIVE (NEGATIVE); OPIATES URINE SCREEN NEGATIVE (NEGATIVE); PHENCYCLIDINE URINE SCREEN NEGATIVE (NEGATIVE)
[2020-04-02 08:27] LABS: *BENZODIAZEPINES SCREEN URINE PRESUMTIVE POSITIVE (NEGATIVE); CANNABINOID URINE SCREEN PRESUMTIVE POSITIVE (NEGATIVE)
[2020-04-02 08:29] LABS: CHLORIDE 109 mEq/L (98-107)
[2020-04-02 08:32] LABS: INR 1.1; PROTHROMBIN TIME 11.6 sec (9.6-11.0)
[2020-04-02 08:35] LABS: BASOPHILS % 0.5 % (0.0-2.0); EOSINOPHILS % 0.3 % (0.0-5.0); HEMATOCRIT. 42.1 % (36.0-48.0); HEMOGLOBIN. 14.3 g/dL (12.0-16.0); MEAN CORPUSCULAR HEMOGLOBIN 33.1 pg (28.0-32.0); MEAN CORPUSCULAR VOLUME 97.5 fL (81.0-99.0); MEAN PLATELET VOLUME 8.5 fl (7.4-10.4); MONOCYTES % 5.9 % (2.0-8.0); NEUTROPHILS % 77.3 % (40.0-76.0); PLATELET 342 x1000/uL (130-400); RED BLOOD CELL COUNT 4.32 mill/uL (4.2-5.4); RED CELL DISTRIBUTION WIDTH 12.6 % (11.6-14.6)
[2020-04-02 08:37] LABS: ETHANOL BLOOD < 10 mg/dL
[2020-04-02] MEDS ORDERED: CEFTRIAXONE 1 G PREMIX 50 ML IV ONE (09:30)
[2020-04-02 12:14] VITALS: BP 103/76
== END 2020-04-02 12:27 | disposition home or self-care (01) ==
LOC: ER 06:08
DX: R10.2 Pelvic and perineal pain (principal); R10.9 Unspecified abdominal pain; R11.2 Nausea with vomiting, unspecified; N39.0 Urinary tract infection, site not specified
CPT/HCPCS: 36415; 74176; 76830; 76856; 80053; 80305; 80320; 81003; 81025; 83690; 85025; 85610; 96361; 96374; 96375; 99285; J0696; J1885; J2060; J2270; J3490; J7030; G0480

== ENCOUNTER 2020-04-13 20:27 | Emergency (ER) | payer MEDICAID ==
[~2020-04-13] VITALS: Ht 162.6 cm; Wt 59.0 kg
[2020-04-13] MEDS ORDERED: MORPHINE SULFATE 4 MG/ML CPJ (NOT FOR IM USE) IV STA (22:52)
[2020-04-13] MEDS ORDERED: ONDANSETRON HCL 4MG/2ML INJ IV STA (22:52)
[2020-04-13] MEDS ORDERED: SODIUM CHLORIDE 0.9% 1,000 ML IV ONE (23:00)
[2020-04-13] MEDS ORDERED: LORAZEPAM 2MG/ML CPJ IV ONE (23:00)
[2020-04-13 23:29] LABS: CHLORIDE 113 mEq/L (98-107)
[2020-04-13 23:33] LABS: ETHANOL BLOOD < 10 mg/dL
[2020-04-13 23:48] LABS: BASOPHILS % 0.4 % (0.0-2.0); EOSINOPHILS % 0.5 % (0.0-5.0); HEMATOCRIT. 42.5 % (36.0-48.0); HEMOGLOBIN. 14.1 g/dL (12.0-16.0); LYMPHOCYTES % 23.8 % (20.0-50.0); MEAN CORPUSCULAR HEMOGLOBIN 32.7 pg (28.0-32.0); MEAN CORPUSCULAR VOLUME 98.3 fL (81.0-99.0); MEAN PLATELET VOLUME 8.3 fl (7.4-10.4); MONOCYTES % 6.4 % (2.0-8.0); NEUTROPHILS % 68.9 % (40.0-76.0); PLATELET 331 x1000/uL (130-400); RED BLOOD CELL COUNT 4.32 mill/uL (4.2-5.4); RED CELL DISTRIBUTION WIDTH 12.9 % (11.6-14.6)
[2020-04-14] MEDS ORDERED: MORPHINE SULFATE 4 MG/ML CPJ (NOT FOR IM USE) IV ONE (01:15)
[2020-04-14 01:29] VITALS: BP 121/75
== END 2020-04-14 01:30 | disposition home or self-care (01) ==
LOC: ER 20:27
DX: G89.4 Chronic pain syndrome (principal); R10.9 Unspecified abdominal pain; F41.9 Anxiety disorder, unspecified
CPT/HCPCS: 36415; 80053; 80320; 83605; 83690; 85025; 93005; 96361; 96374; 96375; 96376; 99284; J2060; J2270; J2405; J7030; G0480

== ENCOUNTER 2020-04-14 15:01 | Emergency (ER) | payer MEDICAID ==
[~2020-04-14] VITALS: Ht 165.1 cm; Wt 64.0 kg
[2020-04-14] MEDS ORDERED: SODIUM CHLORIDE 0.9% 1,000 ML IV ONE (15:15)
[2020-04-14] MEDS ORDERED: KETOROLAC 30MG/ML VIAL IV STA (15:20)
[2020-04-14] MEDS ORDERED: ONDANSETRON HCL 4MG/2ML INJ IV ONE (15:30)
[2020-04-14] MEDS ORDERED: DIATR MEGLU/DIATRIZOATE SOLN 30ML PO ONE (15:30)
[2020-04-14] MEDS ORDERED: LORAZEPAM 2MG/ML CPJ IV ONE (16:00)
[2020-04-14 16:26] LABS: CHLORIDE 108 mEq/L (98-107)
[2020-04-14 16:28] LABS: BASOPHILS % 0.6 % (0.0-2.0); EOSINOPHILS % 0.4 % (0.0-5.0); HEMATOCRIT. 44.8 % (36.0-48.0); HEMOGLOBIN. 15.5 g/dL (12.0-16.0); LYMPHOCYTES % 12.1 % (20.0-50.0); MEAN CORPUSCULAR HEMOGLOBIN 33.2 pg (28.0-32.0); MEAN CORPUSCULAR VOLUME 96.1 fL (81.0-99.0); MEAN PLATELET VOLUME 8.9 fl (7.4-10.4); MONOCYTES % 5.7 % (2.0-8.0); NEUTROPHILS % 81.2 % (40.0-76.0); PLATELET 359 x1000/uL (130-400); RED BLOOD CELL COUNT 4.66 mill/uL (4.2-5.4); RED CELL DISTRIBUTION WIDTH 12.7 % (11.6-14.6)
[2020-04-14 16:34] LABS: ETHANOL BLOOD < 10 mg/dL
[2020-04-14 16:44] LABS: HCG SCREEN NEGATIVE
[2020-04-14] MEDS ORDERED: IOHEXOL-350 100 ML BOTTLE ONE ×2 (17:19→21:58)
[2020-04-14] MEDS ORDERED: KETOROLAC 15MG/ML VIAL IV NR (20:30)
[2020-04-14] MEDS ORDERED: NITROFURANTOIN 100MG M/M CAPSULE PO SCH (22:15)
[2020-04-14 22:26] LABS: CLARITY URINE CLEAR (CLEAR); COLOR URINE YELLOW (YELLOW); KETONES URINE 1+ (NEGATIVE); LEUKOCYTE ESTERASE URINE NEGATIVE (NEGATIVE); NITRITE URINE NEGATIVE (NEGATIVE); OCCULT BLOOD URINE TRACE (NEGATIVE); PH URINE 5.5 (4.5-8.0); PROTEIN URINE 2+ (NEGATIVE); SPECIFIC GRAVITY URINE >1.040 (1.005-1.030); UROBILINOGEN URINE 0.2 E.U./dL (0.2-1.0)
[2020-04-14 22:36] LABS: *AMPHETAMINES SCREEN URINE NEGATIVE (NEGATIVE); *BARBITURATES SCREEN URINE NEGATIVE (NEGATIVE); *BENZODIAZEPINES SCREEN URINE NEGATIVE (NEGATIVE)
[2020-04-14 22:37] LABS: *COCAINE SCREEN URINE NEGATIVE (NEGATIVE); METHADONE URINE SCREEN NEGATIVE (NEGATIVE); PHENCYCLIDINE URINE SCREEN NEGATIVE (NEGATIVE)
[2020-04-14 22:44] LABS: CANNABINOID URINE SCREEN PRESUMTIVE POSITIVE (NEGATIVE); OPIATES URINE SCREEN PRESUMTIVE POSITIVE (NEGATIVE)
[2020-04-14 23:11] VITALS: BP 110/58
== END 2020-04-14 23:13 | disposition home or self-care (01) ==
LOC: ER 15:01
DX: R10.30 Lower abdominal pain, unspecified (principal); R30.0 Dysuria; G89.29 Other chronic pain; F19.10 Other psychoactive substance abuse, uncomplicated; F41.9 Anxiety disorder, unspecified; Z87.891 Personal history of nicotine dependence
CPT/HCPCS: 36415; 71045; 71275; 74177; 76830; 76856; 80053; 80305; 80320; 81003; 83690; 83880; 84484; 84703; 85025; 85379; 93005; 96361; 96374; 96375; 96376; 99285; J1885; J2060; J2405; J7030; Q9963; Q9967; G0480

== ENCOUNTER 2020-04-21 20:55 | Emergency (ER) | payer MEDICAID ==
[~2020-04-21] VITALS: Ht 160 cm; Wt 59.0 kg
[2020-04-21] MEDS: KETOROLAC 30MG/ML VIAL IV NR (23:39)
[2020-04-21 23:50] LABS: CLARITY URINE CLOUDY (CLEAR); COLOR URINE DARK YELLOW (YELLOW); KETONES URINE TRACE (NEGATIVE); LEUKOCYTE ESTERASE URINE TRACE (NEGATIVE); NITRITE URINE NEGATIVE (NEGATIVE); OCCULT BLOOD URINE 2+ (NEGATIVE); PROTEIN URINE 1+ (NEGATIVE); SPECIFIC GRAVITY URINE 1.038 (1.005-1.030)
[2020-04-21 23:57] LABS: BASOPHILS % 0.6 % (0.0-2.0); EOSINOPHILS % 0.7 % (0.0-5.0); HEMATOCRIT. 43.4 % (36.0-48.0); HEMOGLOBIN. 14.7 g/dL (12.0-16.0); LYMPHOCYTES % 24.3 % (20.0-50.0); MEAN CORPUSCULAR HEMOGLOBIN 33.4 pg (28.0-32.0); MEAN CORPUSCULAR VOLUME 98.3 fL (81.0-99.0); MONOCYTES % 4.7 % (2.0-8.0); NEUTROPHILS % 69.7 % (40.0-76.0); RED BLOOD CELL COUNT 4.42 mill/uL (4.2-5.4); RED CELL DISTRIBUTION WIDTH 12.8 % (11.6-14.6)
[2020-04-22 00:02] LABS: CHLORIDE 109 mEq/L (98-107)
[2020-04-22 00:05] LABS: *AMPHETAMINES SCREEN URINE NEGATIVE (NEGATIVE); *BARBITURATES SCREEN URINE NEGATIVE (NEGATIVE); *BENZODIAZEPINES SCREEN URINE NEGATIVE (NEGATIVE); *COCAINE SCREEN URINE NEGATIVE (NEGATIVE); METHADONE URINE SCREEN NEGATIVE (NEGATIVE)
[2020-04-22 00:06] LABS: PHENCYCLIDINE URINE SCREEN NEGATIVE (NEGATIVE)
[2020-04-22 00:06] LABS: INR 1.1; PROTHROMBIN TIME 11.3 sec (9.6-11.0)
[2020-04-22 00:13] LABS: B-HCG QUANTITATIVE < 1 mIU/mL (<3)
[2020-04-22 00:19] LABS: CANNABINOID URINE SCREEN PRESUMTIVE POSITIVE (NEGATIVE); OPIATES URINE SCREEN PRESUMTIVE POSITIVE (NEGATIVE)
[2020-04-22] MEDS: ACETAMINOPHEN WITH CODEINE 300/30MG TABLET PO ONE (00:26)
[2020-04-22] MEDS: KETOROLAC 30MG/ML VIAL IM ONE (00:26)
[2020-04-22] MEDS: LORAZEPAM 1MG TABLET PO ONE (00:27)
[2020-04-22] MEDS: ONDANSETRON 4MG ODT PO ONE (00:33)
[2020-04-22 00:57] LABS: MEAN PLATELET VOLUME 8.4 fl (7.4-10.4); PLATELET 353 x1000/uL (130-400)
[2020-04-22] MEDS: MORPHINE SULFATE 10 MG/ML CPJ IM ONE (01:24)
[2020-04-22 03:20] VITALS: BP 128/73
[2020-04-22] MEDS: TRAMADOL 50MG TABLET PO ONE (03:27)
== END 2020-04-22 03:40 | disposition home or self-care (01) ==
LOC: ER 20:55
DX: G89.29 Other chronic pain (principal); R10.9 Unspecified abdominal pain; R11.0 Nausea; K21.9 Gastro-esophageal reflux disease without esophagitis; Z87.42 Personal history of other diseases of the female genital tract
CPT/HCPCS: 36415; 80053; 80305; 81003; 81025; 84702; 85025; 85610; 86850; 86900; 86901; 93005; 96372; 96374; 99285; J1885; J2270; Q0162

== ENCOUNTER 2020-04-24 11:09 | Emergency (ER) | payer MEDICAID ==
[~2020-04-24] VITALS: Ht 167.6 cm; Wt 70.0 kg
[2020-04-24] MEDS ORDERED: ACETAMINOPHEN WITH CODEINE 300/30MG TABLET PO STA (11:23)
[2020-04-24] MEDS ORDERED: ONDANSETRON 4MG ODT PO ONE (12:15)
[2020-04-24 12:43] LABS: BASOPHILS % 0.6 % (0.0-2.0); EOSINOPHILS % 0.2 % (0.0-5.0); HEMOGLOBIN. 14.7 g/dL (12.0-16.0); LYMPHOCYTES % 21.7 % (20.0-50.0); MEAN CORPUSCULAR HEMOGLOBIN 33.1 pg (28.0-32.0); MEAN CORPUSCULAR VOLUME 96.7 fL (81.0-99.0); MEAN PLATELET VOLUME 8.1 fl (7.4-10.4); MONOCYTES % 5.7 % (2.0-8.0); NEUTROPHILS % 71.8 % (40.0-76.0); PLATELET 370 x1000/uL (130-400); RED BLOOD CELL COUNT 4.45 mill/uL (4.2-5.4); RED CELL DISTRIBUTION WIDTH 12.3 % (11.6-14.6)
[2020-04-24] MEDS ORDERED: MORPHINE SULFATE 10 MG/ML CPJ IM ONE (12:45)
[2020-04-24 12:57] LABS: CHLORIDE 111 mEq/L (98-107)
[2020-04-24 13:04] LABS: ETHANOL BLOOD < 10 mg/dL
[2020-04-24 13:26] LABS: HCG SCREEN NEGATIVE
[2020-04-24] MEDS ORDERED: LORAZEPAM 1MG TABLET PO ONE (15:30)
[2020-04-24] MEDS ORDERED: HYDROCODONE/ACETAMINOPHEN 5/325MG TABLET PO ONE (15:30)
[2020-04-24 15:38] VITALS: BP 93/75
== END 2020-04-24 17:34 | disposition home or self-care (01) ==
LOC: ER 11:09
DX: R10.31 Right lower quadrant pain (principal); R11.2 Nausea with vomiting, unspecified; F41.9 Anxiety disorder, unspecified
CPT/HCPCS: 36415; 74176; 80053; 80320; 83690; 84703; 85025; 96372; 99284; J2270; Q0162; G0480